=== PATIENT | female | born 1990 | race Caucasian/White ===

== ENCOUNTER 2017-01-24 07:40 | Emergency (ER) | payer BC, OTHER ==
--- NOTE | 2017-01-24 08:55 | ED ---
General Adult HPI - General Chief complaint: Recheck/Abnormal Lab/Rx Stated complaint: Vomiting, abd pain Time Seen by Provider: 01/24/17 08:41 Source: patient, RN notes reviewed Mode of arrival: ambulatory Limitations: no limitations - History of Present Illness Initial comments: Patient reports 26-year-old female who presents emergency room today with multiple point specialist within the last few days she had symptoms of nausea vomiting diarrhea. She states this has improved. She denies any abdominal pain. She states that a friend test positive for mild she has had a sore throat over the last few days as well. Patient does note some body aches. She denies any recorded temperatures but states she's had some chills. Patient states that she also thinks she may have a mastitis as she's been breast- feeding but only using one side. Patient denies any other complaints or symptoms at this time. Patient denies any recent shortness of breath, chest pain , back pain, abdominal pain, numbness or tingling, dysuria or hematuria, constipation, headaches or visual changes, or any other complaints. - Related Data Home Medications Medication Instructions Recorded Confirmed Ibuprofen [Motrin] 800 mg PO Q6HR PRN 01/24/17 01/24/17 Previous Rx's Medication Instructions Recorded Cephalexin [Keflex] 500 mg PO Q12HR 10 Days 01/24/17 Allergies Allergy/AdvReac Type Severity Reaction Status Date / Time codeine Allergy Chest Pain Verified 01/24/17 09:02 acetaminophen [From Vicodin] AdvReac other Verified 01/24/17 09:02 hydrocodone bitartrate AdvReac other Verified 01/24/17 09:02 [From Vicodin] Review of Systems ROS Statement: Those systems with pertinent positive or pertinent negative responses have been documented in the HPI. ROS Other: All systems not noted in ROS Statement are negative. Past Medical History Past Medical History: GERD/Reflux, Musculoskeletal Disorder, Neurologic Disorder Additional Past Medical History / Comment(s): Basilar Artery Headaches. Genital Herpes. Bulging disk. Hypoglycemia. ADHD History of Any Multi-Drug Resistant Organisms: None Reported Past Surgical History: Breast Surgery, Orthopedic Surgery Additional Past Surgical History / Comment(s): Right breast mass removed and no Cancer was dx; Right fifth digit surgery due injury; Left inner wrist ganglion cyst removal. Past Anesthesia/Blood Transfusion Reactions: Motion Sickness Additional Past Anesthesia/Blood Transfusion Reaction / Comment(s): No reactions from previous anesthesia; Never had blood transfusion. Past Psychological History: ADD/ADHD, Anxiety, Depression, PTSD Smoking Status: Never smoker Past Alcohol Use History: Occasional Past Drug Use History: Marijuana - Past Family History Mother Family Medical History: Seizure Disorder General Exam - General Exam Comments Initial Comments: General: The patient is awake and alert, in no distress, and does not appear acutely ill. Eye: Pupils are equal, round and reactive to light, extra-ocular movements are intact. No nystagmus. There is normal conjunctiva bilaterally. No signs of icterus. Ears, nose, mouth and throat: There are moist mucous membranes and no oral lesions. Neck: The neck is supple, there is no tenderness or JVD. Cardiovascular: There is a regular rate and rhythm. No murmur, rub or gallop is appreciated. Respiratory: Lungs are clear to auscultation, respirations are non-labored, breath sounds are equal. No wheezes, stridor, rales, or rhonchi. Gastrointestinal: Soft, non-distended, non-tender abdomen without masses or organomegaly noted. There is no rebound or guarding present. No CVA tenderness. Bowel sounds are unremarkable. Musculoskeletal: Normal ROM, no tenderness. Strength 5/5. Sensation intact. Pulses equal bilaterally 2+. Neurological: A&O x 3. CN II-XII intact, There are no obvious motor or sensory deficits. Coordination appears grossly intact. Speech is normal. Skin: Skin is warm and dry and no rashes or lesions are noted. Psychiatric: Cooperative, appropriate mood & affect, normal judgment. Breast: TREATMENT MANAGERNIYA Velasquez present for exam. There is mild redness to the right breast is tender on exam. No masses. Limitations: no limitations Course Vital Signs 01/24/17 01/24/17 01/24/17 08:09 09:00 10:00 Temperature 99.4 F Pulse Rate 113 H 109 H 95 Respiratory 20 20 20 Rate Blood Pressure 118/69 128/60 115/69 O2 Sat by Pulse 99 99 96 Oximetry Medical Decision Making - Medical Decision Making Case discussed in detail with attending physician Dr. Cohen. Patient reexamined at this time shows no signs of distress resting comfortably. Patient's labs reviewed does show 17,000 white count. Urinalysis shows large multiple 12 white cells. Culture pending. Patient will be started on antibiotics of Keflex a mastoiditis. Advised close follow-up over the next 2 days with family doctor or [facility]/advised to return here to the emergency room if any symptoms increase or worsen. - Lab Data Result diagrams: 01/24/17 08:53 01/24/17 08:53 Lab Results 01/24/17 01/24/17 01/24/17 Range/Units 08:53 08:53 08:53 WBC 17.9 H (3.8-10.6) k/uL RBC 3.29 L (3.80-5.40) m/uL Hgb 10.1 L (11.4-16.0) gm/dL Hct 29.9 L (34.0-46.0) % MCV 90.8 (80.0-100.0) fL MCH 30.7 (25.0-35.0) pg MCHC 33.8 (31.0-37.0) g/dL RDW 13.1 (11.5-15.5) % Plt Count 194 (150-450) k/uL Neutrophils % 89 % Lymphocytes % 5 % Monocytes % 4 % Eosinophils % 1 % Basophils % 0 % Neutrophils # 15.9 H (1.3-7.7) k/uL Lymphocytes # 0.9 L (1.0-4.8) k/uL Monocytes # 0.7 (0-1.0) k/uL Eosinophils # 0.2 (0-0.7) k/uL Basophils # 0.1 (0-0.2) k/uL Sodium (137-145) mmol/L Potassium (3.5-5.1) mmol/L Chloride (98-107) mmol/L Carbon Dioxide (22-30) mmol/L Anion Gap mmol/L BUN (7-17) mg/dL Creatinine (0.52-1.04) mg/dL Est GFR (MDRD) Af Amer (>60 ml/min/1.73 sqM) Est GFR (MDRD) Non-Af (>60 ml/min/1.73 sqM) Glucose (74-99) mg/dL Calcium (8.4-10.2) mg/dL Total Bilirubin (0.2-1.3) mg/dL AST (14-36) U/L ALT (9-52) U/L Alkaline Phosphatase (38-126) U/L Total Protein (6.3-8.2) g/dL Albumin (3.5-5.0) g/dL Urine Color Urine Appearance (Clear) Urine pH (5.0-8.0) Ur Specific Sparks (1.001-1.035) Urine Protein (Negative) Urine Glucose (UA) (Negative) Urine Ketones (Negative) Urine Blood (Negative) Urine Nitrite (Negative) Urine Bilirubin (Negative) Urine Urobilinogen (<2.0) mg/dL Ur Leukocyte Esterase (Negative) Urine RBC (0-5) /hpf Urine WBC (0-5) /hpf Ur Squamous Epith Cells (0-4) /hpf Urine Bacteria (None) /hpf Urine Mucus (None) /hpf Urine HCG, Qual (Not Detectd) Heterophile Antibody Negative (Negative) Group A Strep Rapid Negative (Negative) 01/24/17 01/24/17 01/24/17 Range/Units 08:53 10:15 10:15 WBC (3.8-10.6) k/uL RBC (3.80-5.40) m/uL Hgb (11.4-16.0) gm/dL Hct (34.0-46.0) % MCV (80.0-100.0) fL MCH (25.0-35.0) pg MCHC (31.0-37.0) g/dL RDW (11.5-15.5) % Plt Count (150-450) k/uL Neutrophils % % Lymphocytes % % Monocytes % % Eosinophils % % Basophils % % Neutrophils # (1.3-7.7) k/uL Lymphocytes # (1.0-4.8) k/uL Monocytes # (0-1.0) k/uL Eosinophils # (0-0.7) k/uL Basophils # (0-0.2) k/uL Sodium 138 (137-145) mmol/L Potassium 4.1 (3.5-5.1) mmol/L Chloride 103 (98-107) mmol/L Carbon Dioxide 23 (22-30) mmol/L Anion Gap 12 mmol/L BUN 7 (7-17) mg/dL Creatinine 0.69 (0.52-1.04) mg/dL Est GFR (MDRD) Af Amer >60 (>60 ml/min/1.73 sqM) Est GFR (MDRD) Non-Af >60 (>60 ml/min/1.73 sqM) Glucose 96 (74-99) mg/dL Calcium 9.3 (8.4-10.2) mg/dL Total Bilirubin 0.8 (0.2-1.3) mg/dL AST 27 (14-36) U/L ALT 39 (9-52) U/L Alkaline Phosphatase 61 (38-126) U/L Total Protein 7.5 (6.3-8.2) g/dL Albumin 4.2 (3.5-5.0) g/dL Urine Color Yellow Urine Appearance Clear (Clear) Urine pH 8.0 (5.0-8.0) Ur Specific Sparks 1.017 (1.001-1.035) Urine Protein 1+ H (Negative) Urine Glucose (UA) Negative (Negative) Urine Ketones Negative (Negative) Urine Blood Large H (Negative) Urine Nitrite Negative (Negative) Urine Bilirubin Negative (Negative) Urine Urobilinogen <2.0 (<2.0) mg/dL Ur Leukocyte Esterase Negative (Negative) Urine RBC >182 H (0-5) /hpf Urine WBC 12 H (0-5) /hpf Ur Squamous Epith Cells 1 (0-4) /hpf Urine Bacteria Rare H (None) /hpf Urine Mucus Rare H (None) /hpf Urine HCG, Qual Not Detected (Not Detectd) Heterophile Antibody (Negative) Group A Strep Rapid (Negative) Disposition Clinical Impression: Mastitis Disposition: HOME SELF-CARE Condition: Good Instructions: Mastitis (ED) Additional Instructions: Please use medication as discussed. Please follow-up with [facility]/family doctor in the next 2 days of symptoms have not improved. Please return to emergency room if the symptoms increase or worsen or for any other concerns. Prescriptions: Cephalexin [Keflex] 500 mg PO Q12HR 10 Days Referrals: None,Stated [Primary Care Provider] - 1-2 days Rafi Child DO [Doctor of Osteopathic Medicine] - 1-2 days Adelina Vega MD [REFERRING] - 1-2 days Time of Disposition: 11:20
[2017-01-24] MEDS ORDERED: SODIUM CHLORIDE 0.9% 1,000 ML IV ONE (09:02)
[2017-01-24 09:25] LABS: Basophils # (A) 0.1 k/uL (0-0.2); Basophils % (A) 0 %; CH 30.9; CHCM 34.2; Eosinophils # (A) 0.2 k/uL (0-0.7); Eosinophils % (A) 1 %; HCT 29.9 % (34.0-46.0); HDW 2.35; HGB 10.1 gm/dL (11.4-16.0); Luc # (Auto) 0.13; Luc % (Auto) 1; Lymphocytes # (A) 0.9 k/uL (1.0-4.8); Lymphocytes % (A) 5 %; MCH 30.7 pg (25.0-35.0); MCHC 33.8 g/dL (31.0-37.0); MCV 90.8 fL (80.0-100.0); Mean Platelet Volume 7.3; Monocytes # (A) 0.7 k/uL (0-1.0); Monocytes % (A) 4 %; Neutrophils # (A) 15.9 k/uL (1.3-7.7); Neutrophils % (A) 89 %; RBC 3.29 m/uL (3.80-5.40); RDW 13.1 % (11.5-15.5); WBC 17.9 k/uL (3.8-10.6); WBC (Perox) 17.47
[2017-01-24 09:31] LABS: ALT 39 U/L (9-52); AST 27 U/L (14-36); Alkaline Phosphatase 61 U/L (38-126); Anion Gap 12 mmol/L; Blood Urea Nitrogen 7 mg/dL (7-17); Calcium 9.3 mg/dL (8.4-10.2); Carbon Dioxide 23 mmol/L (22-30); Chloride 103 mmol/L (98-107); Glucose 96 mg/dL (74-99); Non-African American GFR(MDRD) >60 (>60 ml/min/1.73 sqM); Potassium 4.1 mmol/L (3.5-5.1); Sodium 138 mmol/L (137-145); Total Bilirubin 0.8 mg/dL (0.2-1.3); Total Protein 7.5 g/dL (6.3-8.2)
[2017-01-24 11:13] LABS: Appearance,Urine Clear (Clear); Bacteria,Urine Rare /hpf; Bilirubin,Urine Negative (Negative); Glucose,Urine (UA) Negative (Negative); Ketones,Urine Negative (Negative); Leukocyte Esterase,Urine Negative (Negative); Mucus,Urine Rare /hpf; Nitrite,Urine Negative (Negative); Particle Count 2633; Protein,Urine 1+ (Negative); RBC,Urine >182 /hpf (0-5); Specific Gravity,Urine 1.017 (1.001-1.035); Squamous Epithelial Cell,Urine 1 /hpf (0-4); UA Billing (MACRO vs. MICRO) MICRO; Urobilinogen,Urine <2.0 mg/dL (<2.0); WBC,Urine 12 /hpf (0-5)
[2017-01-24 11:55] VITALS: BP 116/70; PULSE 100; RESP 18; TEMP 98.7
== END 2017-01-24 12:12 | disposition home or self-care (01) ==
LOC: EC 07:40
DX: N61.0 Mastitis without abscess (principal); R11.2 Nausea with vomiting, unspecified; R19.7 Diarrhea, unspecified; Z88.5 Allergy status to narcotic agent
CPT/HCPCS: 99284 ×2; 96365 ×2; 96361 ×2; 36415; 80053; 85025; 86308; 81001; 81025; 87086; 87081; 87430; J0696

== ENCOUNTER 2017-09-17 14:52 | Emergency (ER) | payer OTHER ==
[2017-09-17 14:57] VITALS: RESP 18; TEMP 98
[2017-09-17] MEDS ORDERED: SODIUM CHLORIDE 0.9% 500 ML IV STA (15:09)
[2017-09-17] MEDS ORDERED: SODIUM CHLORIDE 0.9% 1,000 ML IV STA (15:09)
[2017-09-17] MEDS ORDERED: METOCLOPRAMIDE 5 MG/ML 2 ML VIAL IVP STA (15:09)
[2017-09-17] MEDS ORDERED: KETOROLAC 30 MG/ML 1 ML VIAL IVP STA (15:09)
[2017-09-17] MEDS ORDERED: DEXAMETHASONE SOD PHOSPHATE 10 MG/ML 1 ML VIAL IV STA (15:09)
[2017-09-17] MEDS ORDERED: MAGNESIUM SULFATE-D5W PMX 1 GM in DEXTROSE/WATER 1 100ML.BAG IVPB ONE (15:10)
--- NOTE | 2017-09-17 15:12 | ED ---
Headache HPI - General Chief Complaint: Headache Stated Complaint: Syncope Time Seen by Provider: 09/17/17 15:04 Mode of arrival: wheelchair Limitations: no limitations - History of Present Illness Initial Comments: This 26-year-old white female presents with a complaint of a headache. She states that it is more in the frontal region but also behind her left eye and into her neck. It started this morning upon waking. She has had some photophobia and phonophobia. She does have a long history of migraine headaches and this is very similar to her previous migraines. She denies any fevers or chills. She does have some nausea. She used to be on Topamax as prescribed through a headache clinic at [facility] but stopped this medicine approximately 2 years ago because she was at that time and also because it causes kidney stones. She is thinking of getting back onto this medication. She denies currently. No other complaints or modifying factors. - Related Data Home Medications Medication Instructions Recorded Confirmed Ibuprofen [Motrin] 800 mg PO Q6HR PRN 01/24/17 01/24/17 Previous Rx's Medication Instructions Recorded Cephalexin [Keflex] 500 mg PO Q12HR 10 Days cap 01/24/17 Ondansetron [Zofran ODT] 8 mg PO Q8HR PRN #12 tab 09/17/17 Allergies Allergy/AdvReac Type Severity Reaction Status Date / Time codeine Allergy Chest Pain Verified 09/17/17 14:57 hydrocodone bitartrate AdvReac other Verified 09/17/17 14:57 [From Vicodin] Review of Systems ROS Statement: Those systems with pertinent positive or pertinent negative responses have been documented in the HPI. ROS Other: All systems not noted in ROS Statement are negative. Past Medical History Past Medical History: GERD/Reflux, Musculoskeletal Disorder, Neurologic Disorder Additional Past Medical History / Comment(s): Basilar Artery, Headaches, Genital Herpes, Bulging disk, Hypoglycemia, ADHD History of Any Multi-Drug Resistant Organisms: None Reported Past Surgical History: Breast Surgery, Orthopedic Surgery Additional Past Surgical History / Comment(s): Right breast mass removed and no Cancer was dx; Right fifth digit surgery due injury; Left inner wrist ganglion cyst removal. Past Anesthesia/Blood Transfusion Reactions: Motion Sickness Additional Past Anesthesia/Blood Transfusion Reaction / Comment(s): No reactions from previous anesthesia; Never had blood transfusion. Past Psychological History: ADD/ADHD, Anxiety, Depression, PTSD Smoking Status: Never smoker Past Alcohol Use History: Occasional Past Drug Use History: Marijuana - Past Family History Mother Family Medical History: Seizure Disorder General Exam - General Exam Comments Initial Comments: GENERAL: The patient is well nourished and well hydrated. VITAL SIGNS: Heart rate, blood pressure, respiratory rate reviewed as recorded in nurse's notes. EYES: Pupils are round and reactive. Extraocular movements are intact. No conjunctival / lid redness or swelling. ENT: No external evidence of injury, swelling, or ecchymosis. Airway is patent. Throat is clear. NECK: There is mild tenderness present to the bilateral neck her musculature. No swelling or evidence of injury. No subcutaneous emphysema. Trachea is midline. No thyroid mass. No meningeal signs. HEART: Regular rate and rhythm. Good peripheral pulses. LUNGS/CHEST: Breath sounds clear and equal bilaterally. No rales, rhonchi, or wheezes. No ecchymosis, subcutaneous emphysema, or tenderness. ABDOMEN: Abdomen soft without tenderness. No palpable masses or organomegaly. No peritoneal signs. No abdominal wall swelling or ecchymosis. EXTREMITIES: No extremity tenderness. Normal muscle tone and function. No thoracolumbar tenderness. NEUROLOGIC: Sensation is grossly intact. Cranial nerve exam reveals face is symmetrical, tongue is midline, speech is clear. SKIN: No abrasions or ecchymosis is noted. No induration or masses noted. PSYCHIATRIC: Alert and oriented. Appropriate behavior and judgment. Limitations: no limitations Course Vital Signs 09/17/17 09/17/17 14:53 16:27 Temperature 98.0 F Pulse Rate 109 H 80 Respiratory 18 18 Rate Blood Pressure 129/74 116/58 O2 Sat by Pulse 99 97 Oximetry Medical Decision Making - Medical Decision Making The patient was seen and examined. An IV is established and she is hydrated. She also receives IV Toradol, Reglan, magnesium, and Decadron. She is feeling significantly improved on recheck. It is felt as though her symptoms are consistent with migraine headaches. It is felt as though she stable for discharge and leaves in no distress. Is recommended that she follow back up with her headache specialist at [facility] for further recommendations. Disposition Clinical Impression: Migraine, Nausea Disposition: HOME SELF-CARE Condition: Good Instructions: Migraine Headache (ED) Prescriptions: Ondansetron [Zofran ODT] 8 mg PO Q8HR PRN #12 tab PRN Reason: Nausea Is patient prescribed a controlled substance at d/c from ED?: No Referrals: None,Stated [Primary Care Provider] - 1-2 days Time of Disposition: 16:34
[2017-09-17 17:12] VITALS: BP 103/57; PULSE 76
== END 2017-09-17 17:05 | disposition home or self-care (01) ==
LOC: EC 14:52
DX: G43.909 Migraine, unspecified, not intractable, without status migrainosus (principal); Z88.5 Allergy status to narcotic agent
CPT/HCPCS: 99283; 96365; 96368; 96375 ×2; J2765; J1100; J1885; J3475

== ENCOUNTER 2017-11-07 15:40 | Emergency (ER) | payer OTHER ==
[2017-11-07 16:33] VITALS: BP 119/71; PULSE 91; RESP 18; TEMP 98.9
[2017-11-07] MEDS ORDERED: ORPHENADRINE 30 MG/ML 2 ML VIAL IM STA (17:24)
[2017-11-07] MEDS ORDERED: KETOROLAC 60 MG/2 ML VIAL IM STA (17:24)
--- NOTE | 2017-11-07 17:54 | XR ---
EXAMINATION TYPE: XR lumbar spine 2 or 3V DATE OF EXAM: 11/07/2017 COMPARISON: NONE HISTORY: Chronic low back pain TECHNIQUE: 3 views FINDINGS: Vertebra have normal spacing and alignment. Posterior elements are intact. Sacroiliac joint s appear normal. IMPRESSION: Negative lumbar spine exam.
--- NOTE | 2017-11-07 18:02 | ED ---
Back Pain HPI - General Chief Complaint: Back Pain/Injury Stated Complaint: Back pain Time Seen by Provider: 11/07/17 17:11 Source: patient, RN notes reviewed, old records reviewed Limitations: no limitations - History of Present Illness Initial Comments: This Patient is a 26-year-old female chief complaint of lower back pain radiating down her left leg.Patient reports that she does have chronic back pain. Worse for the past week. Patient's has no falls or injury. Patient denies any recent fever, chills, shortness of breath, chest pain, abdominal pain , nausea vomiting, numbness or tingling, dysuria or hematuria, constipation or diarrhea, headaches or visual changes, or any other current symptoms - Related Data Home Medications Medication Instructions Recorded Confirmed Ibuprofen [Motrin] 800 mg PO Q6HR PRN 01/24/17 01/24/17 Previous Rx's Medication Instructions Recorded Cephalexin [Keflex] 500 mg PO Q12HR 10 Days cap 01/24/17 Ondansetron [Zofran ODT] 8 mg PO Q8HR PRN #12 tab 09/17/17 Cyclobenzaprine [Flexeril] 10 mg PO TID #10 tab 11/07/17 Dexamethasone 0.75 mg PO DAILY #12 tab 11/07/17 Ibuprofen 600 mg PO TID #20 tablet 11/07/17 traMADol HCl [Ultram] 50 mg PO Q6HR PRN 3 Days #10 tab 11/07/17 Allergies Allergy/AdvReac Type Severity Reaction Status Date / Time codeine Allergy Chest Pain Verified 11/07/17 16:31 hydrocodone bitartrate AdvReac other Verified 11/07/17 16:31 [From Vicodin] Review of Systems ROS Statement: Those systems with pertinent positive or pertinent negative responses have been documented in the HPI. ROS Other: All systems not noted in ROS Statement are negative. Past Medical History Past Medical History: GERD/Reflux, Musculoskeletal Disorder, Neurologic Disorder Additional Past Medical History / Comment(s): Basilar Artery, Headaches, Genital Herpes, Bulging disk, Hypoglycemia, ADHD History of Any Multi-Drug Resistant Organisms: None Reported Past Surgical History: Breast Surgery, Orthopedic Surgery Additional Past Surgical History / Comment(s): Right breast mass removed and no Cancer was dx; Right fifth digit surgery due injury; Left inner wrist ganglion cyst removal. Past Anesthesia/Blood Transfusion Reactions: Motion Sickness Additional Past Anesthesia/Blood Transfusion Reaction / Comment(s): No reactions from previous anesthesia; Never had blood transfusion. Past Psychological History: ADD/ADHD, Anxiety, Depression, PTSD Smoking Status: Never smoker Past Alcohol Use History: Occasional Past Drug Use History: None Reported - Past Family History Mother Family Medical History: Seizure Disorder General Exam - General Exam Comments Initial Comments: Is a 26-year-old female. Appears in mild to moderate discomfort. Limitations: no limitations General appearance: alert, in no apparent distress Head exam: Present: atraumatic, normocephalic, normal inspection Eye exam: Present: normal appearance, PERRL, EOMI. Absent: scleral icterus, conjunctival injection, periorbital swelling ENT exam: Present: normal exam, mucous membranes moist Neck exam: Present: normal inspection. Absent: tenderness, meningismus, lymphadenopathy Respiratory exam: Present: normal lung sounds bilaterally. Absent: respiratory distress, wheezes, rales, rhonchi, stridor Cardiovascular Exam: Present: regular rate, normal rhythm, normal heart sounds. Absent: systolic murmur, diastolic murmur, rubs, gallop, clicks GI/Abdominal exam: Present: soft, normal bowel sounds. Absent: distended, tenderness, guarding, rebound, rigid Extremities exam: Present: normal inspection, full ROM, normal capillary refill. Absent: tenderness, pedal edema, joint swelling, calf tenderness Back exam: Present: normal inspection, tenderness (Patient has tenderness over the lumbar spine.) Neurological exam: Present: alert, oriented X3, CN II-XII intact Psychiatric exam: Present: normal affect Course Vital Signs 11/07/17 11/07/17 16:31 18:44 Temperature 98.9 F 98.9 F Pulse Rate 91 91 Respiratory 18 18 Rate Blood Pressure 119/71 119/71 O2 Sat by Pulse 98 98 Oximetry Medical Decision Making - Medical Decision Making 26-year-old female chief complaint of lower back pain. She does have chronic back pain worse over the past week. No falls or trauma. She reports the pain occasionally shoots down the left leg. Patient denies saddle anesthesias. Strength bilateral lower extremities. Denies any peripheral paresthesias. X- ray of the lumbar spine was reviewed and normal. Is given IM Toradol and Norflex does report some relief with this time. Patient will be discharged as reports muscle relaxers and pain management. I discussed follow-up with PCP. QUESTIONS answered return parameters were discussed. - Radiology Data Radiology results: report reviewed Lumbar spine exam. Disposition Clinical Impression: Acute lumbar back pain Disposition: HOME SELF-CARE Condition: Good Instructions: Acute Low Back Pain (ED) Additional Instructions: Patient advised to do passive stretches, apply heat and ice over the area. Patient can follow-up with primary care physician. Take the medications as prescribed. Return to the emergency department if any alarming signs or symptoms occur. Prescriptions: Cyclobenzaprine [Flexeril] 10 mg PO TID #10 tab Dexamethasone 0.75 mg PO DAILY #12 tab Ibuprofen 600 mg PO TID #20 tablet traMADol HCl [Ultram] 50 mg PO Q6HR PRN 3 Days #10 tab PRN Reason: Pain Is patient prescribed a controlled substance at d/c from ED?: Yes When asked, does pt state using other controlled substances?: No If prescribed controlled substance>3 days was MAPS reviewed?: Prescribed <3 Days If opioid is for acute pain is fill amount 7 days or less?: Yes If Rx opioid, was Start Talking consent form obtained?: Yes Referrals: Valeria Waddell MD [Primary Care Provider] - 1-2 days Time of Disposition: 17:59
== END 2017-11-07 18:44 | disposition home or self-care (01) ==
LOC: EC 15:40
DX: M54.5 Low back pain (principal); Z88.5 Allergy status to narcotic agent
CPT/HCPCS: 99284; 96372 ×2; 72100; J2360; J1885

== ENCOUNTER 2017-11-23 17:59 | Emergency (ER) | payer OTHER ==
[2017-11-23 18:11] VITALS: RESP 18
[2017-11-23] MEDS ORDERED: diphenhydrAMINE 50 MG/ML 1 ML VIAL IVP STA (18:24)
[2017-11-23] MEDS ORDERED: KETOROLAC 60 MG/2 ML VIAL IVP STA (18:24)
[2017-11-23] MEDS ORDERED: PROMETHAZINE INJ 25 MG/ML 1 ML VIAL IM STA (18:25)
--- NOTE | 2017-11-23 18:27 | ED ---
General Adult HPI - General Chief complaint: Syncope Stated complaint: Syncope Time Seen by Provider: 11/23/17 18:00 Source: patient, EMS, RN notes reviewed Mode of arrival: EMS Limitations: no limitations - History of Present Illness Initial comments: This a 26-year-old female who presents emergency Department complaining of a migraine headache for the last few days she states is typical of her normal migraine headaches it's behind her left eye like it always is. Patient states on occasion when she has a migraine she passes out. Patient states this is been ongoing for 14 years. Patient states over the last 3 or 4 months it's occurred once a month. Patient states for many years that occurred once a month. Patient states she has no nausea vomiting no photophobia. Patient denies any chest pain difficult breathing shortness of breath. Patient denies any palpations. Patient denies any abdominal pain patient denies any vomiting or diarrhea recently. Patient denies any recent fever chills or cough. Patient denies any numbness or weakness. - Related Data Home Medications Medication Instructions Recorded Confirmed No Known Home Medications 11/23/17 11/23/17 Allergies Allergy/AdvReac Type Severity Reaction Status Date / Time codeine Allergy Chest Pain Verified 11/23/17 18:25 hydrocodone bitartrate AdvReac other Verified 11/23/17 18:25 [From Vicodin] Review of Systems ROS Statement: Those systems with pertinent positive or pertinent negative responses have been documented in the HPI. ROS Other: All systems not noted in ROS Statement are negative. Past Medical History Past Medical History: GERD/Reflux, Musculoskeletal Disorder, Neurologic Disorder , Syncope Additional Past Medical History / Comment(s): Basilar Artery, Headaches, Genital Herpes, Bulging disk, Hypoglycemia, ADHD History of Any Multi-Drug Resistant Organisms: None Reported Past Surgical History: Breast Surgery, Orthopedic Surgery Additional Past Surgical History / Comment(s): Right breast mass removed and no Cancer was dx; Right fifth digit surgery due injury; Left inner wrist ganglion cyst removal. Past Anesthesia/Blood Transfusion Reactions: Motion Sickness Additional Past Anesthesia/Blood Transfusion Reaction / Comment(s): No reactions from previous anesthesia; Never had blood transfusion. Past Psychological History: ADD/ADHD, Anxiety, Depression, PTSD Smoking Status: Never smoker Past Alcohol Use History: Occasional Past Drug Use History: None Reported - Past Family History Mother Family Medical History: Seizure Disorder General Exam - General Exam Comments Initial Comments: GENERAL: Patient is well-developed and well-nourished. Patient is nontoxic and well- hydrated and is in mild distress. ENT: Neck is soft and supple. No significant lymphadenopathy is noted. Oropharynx is clear. Moist mucous membranes. Neck has full range of motion without eliciting any pain. EYES: The sclera were anicteric and conjunctiva were pink and moist. Extraocular movements were intact and pupils were equal round and reactive to light. Eyelids were unremarkable. PULMONARY: Unlabored respirations. Good breath sounds bilaterally. No audible rales rhonchi or wheezing was noted. CARDIOVASCULAR: There is a regular rate and rhythm without any murmurs gallops or rubs. ABDOMEN: Soft and nontender with normal bowel sounds. No palpable organomegaly was noted. There is no palpable pulsatile mass. SKIN: Skin is clear with no lesions or rashes and otherwise unremarkable. NEUROLOGIC: Patient is alert and oriented x3. Cranial nerves II through XII are grossly intact. Motor and sensory are also intact. Normal speech, volume and content. Symmetrical smile. MUSCULOSKELETAL: Normal extremities with adequate strength and full range of motion. No lower extremity swelling or edema. No calf tenderness. LYMPHATICS: No significant lymphadenopathy is noted PSYCHIATRIC: Normal psychiatric evaluation. Normal interpersonal interactions appears functionally intact in deals appropriately with others. No signs of depression. No signs of anxiety. Limitations: no limitations Course Vital Signs 11/23/17 18:04 Temperature 98.7 F Pulse Rate 77 Respiratory 18 Rate Blood Pressure 134/84 O2 Sat by Pulse 98 Oximetry Medical Decision Making - Medical Decision Making EKG shows normal sinus rhythm at 70 bpm GA interval 146 QRS is 74 QT interval 370 QTC is 421 per patient's EKG shows no ST segment elevation or depression or T wave abnormalities are noted I gave the patient some medication for migraine headache she was much improved. Patient will follow-up with a neurologist. - Lab Data Result diagrams: 11/23/17 18:35 11/23/17 18:35 Lab Results 11/23/17 11/23/17 Range/Units 18:35 18:35 WBC 8.4 (3.8-10.6) k/uL RBC 4.45 (3.80-5.40) m/uL Hgb 13.1 (11.4-16.0) gm/dL Hct 39.9 (34.0-46.0) % MCV 89.7 (80.0-100.0) fL MCH 29.5 (25.0-35.0) pg MCHC 32.9 (31.0-37.0) g/dL RDW 13.4 (11.5-15.5) % Plt Count 267 (150-450) k/uL Neutrophils % 68 % Lymphocytes % 22 % Monocytes % 4 % Eosinophils % 3 % Basophils % 1 % Neutrophils # 5.7 (1.3-7.7) k/uL Lymphocytes # 1.8 (1.0-4.8) k/uL Monocytes # 0.4 (0-1.0) k/uL Eosinophils # 0.3 (0-0.7) k/uL Basophils # 0.1 (0-0.2) k/uL Sodium 139 (137-145) mmol/L Potassium 4.5 (3.5-5.1) mmol/L Chloride 107 (98-107) mmol/L Carbon Dioxide 23 (22-30) mmol/L Anion Gap 9 mmol/L BUN 16 (7-17) mg/dL Creatinine 0.62 (0.52-1.04) mg/dL Est GFR (CKD-EPI)AfAm >90 (>60 ml/min/1.73 sqM) Est GFR (CKD-EPI)NonAf >90 (>60 ml/min/1.73 sqM) Glucose 76 (74-99) mg/dL Calcium 9.7 (8.4-10.2) mg/dL Total Bilirubin 0.2 (0.2-1.3) mg/dL AST 19 (14-36) U/L ALT 26 (9-52) U/L Alkaline Phosphatase 39 (38-126) U/L Total Protein 7.3 (6.3-8.2) g/dL Albumin 4.4 (3.5-5.0) g/dL Disposition Clinical Impression: Migraine headache, Syncope Disposition: HOME SELF-CARE Condition: Good Instructions: Migraine Headache (ED) Is patient prescribed a controlled substance at d/c from ED?: No Referrals: Andrew Duncan MD [STAFF PHYSICIAN] - 1-2 days Valeria Waddell MD [Primary Care Provider] - 1-2 days Time of Disposition: 19:13
[2017-11-23 18:54] LABS: Basophils # (A) 0.1 k/uL (0-0.2); Basophils % (A) 1 %; Eosinophils # (A) 0.3 k/uL (0-0.7); Eosinophils % (A) 3 %; HCT 39.9 % (34.0-46.0); HGB 13.1 gm/dL (11.4-16.0); Lymphocytes # (A) 1.8 k/uL (1.0-4.8); Lymphocytes % (A) 22 %; MCH 29.5 pg (25.0-35.0); MCHC 32.9 g/dL (31.0-37.0); MCV 89.7 fL (80.0-100.0); Mean Platelet Volume 6.8; Monocytes # (A) 0.4 k/uL (0-1.0); Monocytes % (A) 4 %; Neutrophils # (A) 5.7 k/uL (1.3-7.7); Neutrophils % (A) 68 %; Platelet Count 267 k/uL (150-450); RBC 4.45 m/uL (3.80-5.40); RDW 13.4 % (11.5-15.5); WBC 8.4 k/uL (3.8-10.6)
[2017-11-23 19:03] LABS: ALT 26 U/L (9-52); AST 19 U/L (14-36); Albumin 4.4 g/dL (3.5-5.0); Alkaline Phosphatase 39 U/L (38-126); Anion Gap 9 mmol/L; Blood Urea Nitrogen 16 mg/dL (7-17); Calcium 9.7 mg/dL (8.4-10.2); Carbon Dioxide 23 mmol/L (22-30); Chloride 107 mmol/L (98-107); Glucose 76 mg/dL (74-99); Potassium 4.5 mmol/L (3.5-5.1); Sodium 139 mmol/L (137-145); Total Bilirubin 0.2 mg/dL (0.2-1.3); Total Protein 7.3 g/dL (6.3-8.2)
[2017-11-23 19:46] VITALS: BP 146/51; PULSE 77; TEMP 97
== END 2017-11-23 19:46 | disposition home or self-care (01) ==
LOC: EC 17:59
DX: G43.909 Migraine, unspecified, not intractable, without status migrainosus (principal); Z88.5 Allergy status to narcotic agent
CPT/HCPCS: 36415; 93005; 80053; 85025; 99285; 96374; 96375; 96372; J1200; J2550; J1885

== ENCOUNTER → 2017-12-19 | Outpatient (CLI) | payer OTHER ==
--- NOTE | 2017-12-19 15:30 | MR ---
EXAMINATION TYPE: MR angio head wo con DATE OF EXAM: 12/19/2017 COMPARISON: MRI brain 12/19/2017 HISTORY: Headache CONTRAST: None TECHNIQUE: Multiplanar multiecho imaging on a 3.0 [place] magnet is performed through the [place]. 3-D [id number] imaging is performed. Source images are reviewed on the computer in the axi al plane. Reconstructed images rotating on the computer are reviewed. FINDINGS: The internal carotid arteries bifurcate normally into A1 and M1 segments. The A2 segments are normal. Middle cerebral artery branches are normal. Anterior communicating artery is patent. The right posterior communicating artery is absent. The left posterior communicating artery is patent. Vertebrobasilar arteries within the [id number] are normal. Posterior cerebral vasculature is norm al. No suspicious aneurysm or aneurysmal dilatation is evident. No obstructions are identified. No significant flow-limiting stenosis is evident. IMPRESSIONS: 1. NORMAL MRA [place] OF ROSS.
--- NOTE | 2017-12-19 21:34 | MR ---
EXAMINATION TYPE: MR brain wo con DATE OF EXAM: 12/19/2017 COMPARISON: None HISTORY: Headache CONTRAST: Performed utilizing 0 mL intravenous Gadavist gadolinium contrast. TECHNIQUE: Multiplanar, multiecho imaging on a 3.0 [place]ár[place] magnet is performed through the brain. Stud y is performed within 24 hours of arrival to the hospital. The craniovertebral junction is normal. The pituitary is normal. Diffusion-weighted imaging is performed. No abnormal hyperintensity is present to suggest an acute i ntracranial infarct or acute ischemic change. Signal through the brain is normal. Ventricles and sulci are appropriate for the patient age. Optic chiasm is visualized normal. There is normal vascular flow voids within the visualized intracra nial cerebral vasculature. IMPRESSIONS: 1. Normal noncontrast MRI brain
== END | disposition home or self-care (01) ==
LOC: RADMRIMAIN 10:36
PROVIDERS: ATTEND Family Medicine
DX: R51 Headache (principal); Z86.69 Personal history of other diseases of the nervous system and sense organs
CPT/HCPCS: 70544; 70551

== ENCOUNTER → 2018-01-16 | Outpatient (CLI) | payer OTHER ==
--- NOTE | 2018-01-16 08:41 | MR ---
EXAMINATION TYPE: MR lumbar spine wo con DATE OF EXAM: 01/16/2018 7:59 AM COMPARISON: NONE HISTORY: Low back pain Multiplanar, MultiSpin echo imaging of the lumbar spine was performed. L1-L2: Normal disc appearance without desiccation. No herniation, protrusion or disc bulging. No ca nal stenosis is present. Foramina are patent bilaterally. L2-L3: Normal disc appearance without desiccation. No herniation, protrusion or disc bulging. No ca nal stenosis is present. Foramina are patent bilaterally. L3-L4: Normal disc appearance without desiccation. No herniation, protrusion or disc bulging. No ca nal stenosis is present. Foramina are patent bilaterally. L4-L5: Normal disc appearance without desiccation. No herniation, protrusion or disc bulging. No ca nal stenosis is present. Foramina are patent bilaterally. L5-S1: Moderate disc desiccation. Right paracentral subligamentous disc herniation mildly effaces the ventral thecal sac. No evidence for lateral recess stenosis or central stenosis. Lumbar segments are intact. No paraspinal masses are identified. Conus medullaris has a normal appe arance. Subcentimeter simple cyst upper pole left kidney. IMPRESSION: 1. Moderate disc desiccation with subligamentous herniation L5-S1 is noted.
== END ==
LOC: RADMRIMAIN 07:20
PROVIDERS: ATTEND Psychiatry & Neurology Neurology
DX: M51.27 Other intervertebral disc displacement, lumbosacral region (principal)
CPT/HCPCS: 72148

== ENCOUNTER 2018-04-12 16:50 | Emergency (ER) | payer OTHER ==
[2018-04-12] MEDS ORDERED: IPRATROPIUM-ALBUTEROL 3 ML NEB INHALATION STA (17:31)
--- NOTE | 2018-04-12 17:34 | ED ---
URI HPI - General Chief Complaint: Upper Respiratory Infection Stated Complaint: cough Time Seen by Provider: 04/12/18 17:21 Source: patient, RN notes reviewed, old records reviewed Mode of arrival: ambulatory Limitations: no limitations - History of Present Illness Initial Comments: This Patient is a 27-year-old female, presents Emergency Department with chief complaint of cough 5 months. She states she's felt increasingly fatigued today. Patient states that she has been suffering from this nonproductive cough for quite some time. She does not follow up with her primary doctor. She is a nonsmoker. She states the cough seems to worse at night. She denies any associated chest pain. Patient states that she started having symptoms when her children came down with a viral illness. She states she's never seemed to get better. She reports that she's had some slight diarrhea over the past few days. She denies any abdominal pain, nausea or vomiting. - Related Data Home Medications Medication Instructions Recorded Confirmed Ascorbic Acid [Vitamin C] 500 mg PO DAILY 04/12/18 04/12/18 Estrostep Fe Control 1 tab PO DAILY 04/12/18 04/12/18 Topamax (Unknown Dose) 1 tab PO DIRECTED 04/12/18 04/12/18 Vitamin B Complex 1 cap PO DAILY 04/12/18 04/12/18 valACYclovir [Valtrex] 500 mg PO DAILY 04/12/18 04/12/18 Previous Rx's Medication Instructions Recorded Albuterol Inhaler [Ventolin Hfa 1 - 2 puff INHALATION RT-Q6H PRN 04/12/18 Inhaler] #1 inhaler methylPREDNISolone Dose Pack 4 mg PO DIRECTED #21 package 04/12/18 [Medrol Dose Pack] Allergies Allergy/AdvReac Type Severity Reaction Status Date / Time codeine Allergy Chest Pain Verified 04/12/18 17:45 hydrocodone bitartrate AdvReac other Verified 04/12/18 17:45 [From Vicodin] Review of Systems ROS Statement: Those systems with pertinent positive or pertinent negative responses have been documented in the HPI. ROS Other: All systems not noted in ROS Statement are negative. Past Medical History Past Medical History: GERD/Reflux, Musculoskeletal Disorder, Neurologic Disorder , Syncope Additional Past Medical History / Comment(s): Basilar Artery, Headaches, Genital Herpes, Bulging disk, Hypoglycemia, ADHD History of Any Multi-Drug Resistant Organisms: None Reported Past Surgical History: Breast Surgery, Orthopedic Surgery Additional Past Surgical History / Comment(s): Right breast mass removed and no Cancer was dx; Right fifth digit surgery due injury; Left inner wrist ganglion cyst removal. Past Anesthesia/Blood Transfusion Reactions: Motion Sickness Additional Past Anesthesia/Blood Transfusion Reaction / Comment(s): No reactions from previous anesthesia; Never had blood transfusion. Past Psychological History: ADD/ADHD, Anxiety, Depression, PTSD Smoking Status: Never smoker Past Alcohol Use History: Occasional Past Drug Use History: None Reported - Past Family History Mother Family Medical History: Seizure Disorder General Exam - General Exam Comments Initial Comments: 27 year old female, no distress. Limitations: no limitations General appearance: alert, in no apparent distress Head exam: Present: atraumatic, normocephalic, normal inspection Eye exam: Present: normal appearance ENT exam: Present: normal exam, mucous membranes moist Neck exam: Present: normal inspection. Absent: tenderness, meningismus, lymphadenopathy Respiratory exam: Present: normal lung sounds bilaterally. Absent: respiratory distress, wheezes, rales, rhonchi, stridor Cardiovascular Exam: Present: regular rate, normal rhythm, normal heart sounds. Absent: systolic murmur, diastolic murmur, rubs, gallop, clicks GI/Abdominal exam: Present: soft Extremities exam: Present: normal inspection, full ROM, normal capillary refill. Absent: tenderness, pedal edema, joint swelling, calf tenderness Back exam: Present: normal inspection Course Vital Signs 04/12/18 04/12/18 04/12/18 16:54 17:40 17:48 Temperature 98.3 F Pulse Rate 83 72 74 Respiratory 16 16 16 Rate Blood Pressure 107/76 O2 Sat by Pulse 100 Oximetry Medical Decision Making - Medical Decision Making 19-year-old female presents to return today with shortness of breath, and cough worse at night for the past 5 months. He states that she's felt more weak and shaky over the past few days. At this time her vital signs are stable. No fever. She appears in no acute distress. She denies any chest pain or discomfort. She was given a DuoNeb treatment. Patient's chest x-ray was reviewed and unremarkable. Her lab work shows no significant changes. HCG is negative. Discussed at this time patient's likely suffering from asthma specialist and has been worse tonight. We'll put the Patient on steroids and given albuterol treatment. Discussion is to follow-up with her primary care physician. I discussed the Patient should rest, remain hydrated. Following up with her primary care physician. - Lab Data Result diagrams: 04/12/18 17:50 04/12/18 17:50 Lab Results 04/12/18 04/12/18 04/12/18 Range/Units 17:42 17:42 17:50 WBC (3.8-10.6) k/uL RBC (3.80-5.40) m/uL Hgb (11.4-16.0) gm/dL Hct (34.0-46.0) % MCV (80.0-100.0) fL MCH (25.0-35.0) pg MCHC (31.0-37.0) g/dL RDW (11.5-15.5) % Plt Count (150-450) k/uL Neutrophils % % Lymphocytes % % Monocytes % % Eosinophils % % Basophils % % Neutrophils # (1.3-7.7) k/uL Lymphocytes # (1.0-4.8) k/uL Monocytes # (0-1.0) k/uL Eosinophils # (0-0.7) k/uL Basophils # (0-0.2) k/uL Sodium 139 (137-145) mmol/L Potassium 4.5 (3.5-5.1) mmol/L Chloride 110 H (98-107) mmol/L Carbon Dioxide 23 (22-30) mmol/L Anion Gap 6 mmol/L BUN 11 (7-17) mg/dL Creatinine 0.82 (0.52-1.04) mg/dL Est GFR (CKD-EPI)AfAm >90 (>60 ml/min/1.73 sqM) Est GFR (CKD-EPI)NonAf >90 (>60 ml/min/1.73 sqM) Glucose 91 (74-99) mg/dL Calcium 9.5 (8.4-10.2) mg/dL Urine Color Yellow Urine Appearance Cloudy H (Clear) Urine pH 7.0 (5.0-8.0) Ur Specific [place] 1.018 (1.001-1.035) Urine Protein Negative (Negative) Urine Glucose (UA) Negative (Negative) Urine Ketones Negative (Negative) Urine Blood Negative (Negative) Urine Nitrite Negative (Negative) Urine Bilirubin Negative (Negative) Urine Urobilinogen <2.0 (<2.0) mg/dL Ur Leukocyte Esterase Negative (Negative) Ur Squamous Epith Cells <1 (0-4) /hpf Urine Bacteria Rare H (None) /hpf Urine Mucus Rare H (None) /hpf Urine Yeast (Budding) Few H (None) /hpf Urine HCG, Qual Not Detected (Not Detectd) 04/12/18 Range/Units 17:50 WBC 9.7 (3.8-10.6) k/uL RBC 4.70 (3.80-5.40) m/uL Hgb 13.8 (11.4-16.0) gm/dL Hct 42.0 (34.0-46.0) % MCV 89.3 (80.0-100.0) fL MCH 29.5 (25.0-35.0) pg MCHC 33.0 (31.0-37.0) g/dL RDW 12.9 (11.5-15.5) % Plt Count 262 (150-450) k/uL Neutrophils % 63 % Lymphocytes % 28 % Monocytes % 4 % Eosinophils % 3 % Basophils % 1 % Neutrophils # 6.1 (1.3-7.7) k/uL Lymphocytes # 2.7 (1.0-4.8) k/uL Monocytes # 0.4 (0-1.0) k/uL Eosinophils # 0.3 (0-0.7) k/uL Basophils # 0.1 (0-0.2) k/uL Sodium (137-145) mmol/L Potassium (3.5-5.1) mmol/L Chloride (98-107) mmol/L Carbon Dioxide (22-30) mmol/L Anion Gap mmol/L BUN (7-17) mg/dL Creatinine (0.52-1.04) mg/dL Est GFR (CKD-EPI)AfAm (>60 ml/min/1.73 sqM) Est GFR (CKD-EPI)NonAf (>60 ml/min/1.73 sqM) Glucose (74-99) mg/dL Calcium (8.4-10.2) mg/dL Urine Color Urine Appearance (Clear) Urine pH (5.0-8.0) Ur Specific [place] (1.001-1.035) Urine Protein (Negative) Urine Glucose (UA) (Negative) Urine Ketones (Negative) Urine Blood (Negative) Urine Nitrite (Negative) Urine Bilirubin (Negative) Urine Urobilinogen (<2.0) mg/dL Ur Leukocyte Esterase (Negative) Ur Squamous Epith Cells (0-4) /hpf Urine Bacteria (None) /hpf Urine Mucus (None) /hpf Urine Yeast (Budding) (None) /hpf Urine HCG, Qual (Not Detectd) - Radiology Data Radiology results: report reviewed Normal chest x-ray Disposition Clinical Impression: Chronic cough, Fatigue Disposition: HOME SELF-CARE Condition: Good Instructions: Asthma (ED) Additional Instructions: Patient has follow up with your primary care physician. Take the steroids and use inhaler as prescribed. Return to emergency department if any alarming signs or symptoms occur. Prescriptions: Albuterol Inhaler [Ventolin Hfa Inhaler] 1 - 2 puff INHALATION RT-Q6H PRN #1 inhaler PRN Reason: Shortness Of Breath methylPREDNISolone Dose Pack [Medrol Dose Pack] 4 mg PO DIRECTED #21 package Is patient prescribed a controlled substance at d/c from ED?: No Referrals: Valeria Waddell MD [Primary Care Provider] - 1-2 days Time of Disposition: 19:06
[2018-04-12 17:57] VITALS: PULSE 74
[2018-04-12 18:03] LABS: Basophils # (A) 0.1 k/uL (0-0.2); Basophils % (A) 1 %; Eosinophils # (A) 0.3 k/uL (0-0.7); Eosinophils % (A) 3 %; HGB 13.8 gm/dL (11.4-16.0); Lymphocytes # (A) 2.7 k/uL (1.0-4.8); Lymphocytes % (A) 28 %; MCH 29.5 pg (25.0-35.0); MCV 89.3 fL (80.0-100.0); Mean Platelet Volume 7.2; Monocytes # (A) 0.4 k/uL (0-1.0); Monocytes % (A) 4 %; Neutrophils # (A) 6.1 k/uL (1.3-7.7); Neutrophils % (A) 63 %; Platelet Count 262 k/uL (150-450); RDW 12.9 % (11.5-15.5); WBC 9.7 k/uL (3.8-10.6)
[2018-04-12 18:11] LABS: Anion Gap 6 mmol/L; Blood Urea Nitrogen 11 mg/dL (7-17); Calcium 9.5 mg/dL (8.4-10.2); Carbon Dioxide 23 mmol/L (22-30); Chloride 110 mmol/L (98-107); Glucose 91 mg/dL (74-99); Potassium 4.5 mmol/L (3.5-5.1); Sodium 139 mmol/L (137-145)
[2018-04-12 18:12] LABS: Appearance,Urine Cloudy (Clear); Bacteria,Urine Rare /hpf; Bilirubin,Urine Negative (Negative); Blood,Urine Negative (Negative); Budding Yeast,Urine Few /hpf; Color,Urine Yellow; Glucose,Urine (UA) Negative (Negative); Ketones,Urine Negative (Negative); Leukocyte Esterase,Urine Negative (Negative); Mucus,Urine Rare /hpf; Nitrite,Urine Negative (Negative); Protein,Urine Negative (Negative); Specific Gravity,Urine 1.018 (1.001-1.035); Squamous Epithelial Cell,Urine <1 /hpf (0-4); Urobilinogen,Urine <2.0 mg/dL (<2.0)
--- NOTE | 2018-04-12 18:35 | XR ---
EXAMINATION TYPE: XR chest 2V DATE OF EXAM: 04/12/2018 COMPARISON: NONE HISTORY: Cough and weakness TECHNIQUE: Frontal and lateral views of the chest are obtained. FINDINGS: Heart and mediastinum are normal. Lungs are clear. Diaphragm is normal. Bony thorax appear s normal. Pulmonary vascularity is normal. IMPRESSION: Normal chest
[2018-04-12 19:50] VITALS: BP 116/68; RESP 18; TEMP 98.2
== END 2018-04-12 19:30 | disposition home or self-care (01) ==
LOC: EC 16:50
DX: R05 Cough (principal); R53.83 Other fatigue; F90.9 Attention-deficit hyperactivity disorder, unspecified type; F32.9 Major depressive disorder, single episode, unspecified; F41.9 Anxiety disorder, unspecified; F43.10 Post-traumatic stress disorder, unspecified; Z79.3 Long term (current) use of hormonal contraceptives; Z79.899 Other long term (current) drug therapy; Z88.5 Allergy status to narcotic agent
CPT/HCPCS: 36415; 71046; 80048; 81001; 81025; 85025; 94640; 99284

== ENCOUNTER → 2018-06-15 | Outpatient (CLI) | payer OTHER ==
--- NOTE | 2018-06-15 10:33 | USB ---
Reason for exam: clinical finding. History: Took hormonal contraceptives beginning at age 16. Indicated problem(s): pain in both breasts. Physical Findings: Nurse Summary: soft, nodular, prominent nodule (nurse dw). US Breast BILAT Right complete breast ultrasound includes all four quadrants, the retroareolar region and axilla. Finding demonstrates a 0.5 x 0.2 x 0.5cm lesion too small to characterize at 6 o'clock, a 0.6 x 0.3 x 0.6cm solid lesion at 10 o'clock that can be reassessed in 6 months and a 0.7 x 0.4 x 0.3cm mixed lesion at the axilla tail, possibly cystic, reassess in 6 months. Right breast shows no solid or cystic lesion. Left complete breast ultrasound includes all four quadrants, the retroareolar region and axilla. Finding demonstrates no cystic or solid lesion seen. These results were verbally communicated with the patient and result sheet given to the patient on 06/15/18. ASSESSMENT: Probably benign, BI-RAD 3 RECOMMENDATION: Ultrasound of the right breast in 6 months. Manage on a clinical basis with regard to bilateral breast pain.
== END | disposition home or self-care (01) ==
LOC: RADUSWWP 06:55
PROVIDERS: ATTEND Obstetrics & Gynecology
DX: N64.4 Mastodynia (principal)

== ENCOUNTER 2018-07-18 09:39 | Emergency (ER) | payer OTHER ==
[2018-07-18 09:44] VITALS: BP 128/87; PULSE 89; RESP 18; TEMP 98.4
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
[2018-07-18] MEDS ORDERED: ONDANSETRON 4 MG ODT STARTER PACK 2 TAB BTL PO STA (10:16)
== END 2018-07-18 10:45 | disposition home or self-care (01) ==
LOC: EC 09:39
DX: F07.81 Postconcussional syndrome (principal); Z79.3 Long term (current) use of hormonal contraceptives; Z79.899 Other long term (current) drug therapy; Z88.5 Allergy status to narcotic agent
CPT/HCPCS: 99283; S0119

== ENCOUNTER → 2018-10-20 | Outpatient (CLI) | payer OTHER ==
[2018-10-20 14:02] VITALS: BP 121/66; PULSE 98; RESP 16; TEMP 98; BMI 20.1
--- NOTE | 2018-10-20 15:43 | P.PN ---
Subjective Progress Note Date: 10/20/18 Principal diagnosis: Breast pain The patient is a 27-year-old white female who was initially seen on 07-27-28 with a complaint of breast pain. At that time she noted that the pain was not cyclical. She did take ibuprofen at times. And she had had a bilateral breast ultrasound done in May 2018 which revealed cystic changes in the right breast and repeat ultrasound of the right breast in 6 months was recommended. In the left breast there were no specific lesions of concern. She did take control pills. And she did drink 2 pots per day. She did not smoke and is not exposed to secondhand smoke. After she was seen it was felt that she had fibrocystic breast changes and that she should stop the caffeine and was given a recommendation to take primrose oil. She states within a week of taking the [place] oil the pain had markedly decreased. Additionally at that time she was under stress and stress has resolved. She has lost 35 pounds which may also be a reason for the decrease in breast pain. Family history: Both grandfathers prostate cancer Hormonal history: Menarche: 12 Pregnancies: 2, Versed 24, press-fit: Yes, at 14 Periods: Regular if she was on control pills control pills: Yes Hormones: Negative Past surgical history: Right breast biopsy Cyst removed from this On section Finger fracture Past medical history: Patient is alert artery migraines which have decreased Social history: Smoke: Negative Alcohol: Once a month Drugs: Negative Review of systems: Constitutional: Negative Eyes: Negative Ears: Negative Breasts: As HPI Cardiovascular: Negative Respiratory: Asthma GI: Negative : Negative Menstrual periods are regular on control pills : Kidney stones Musculoskeletal: Negative Integument: Negative Neurologic: Weakness Psychiatric: Negative Endocrine: Weight loss Objective - Vital Signs Vital signs: Vital Signs Temp 98.0 F 10/20/18 13:59 Pulse 98 10/20/18 13:59 Resp 16 10/20/18 13:59 BP 121/66 10/20/18 13:59 Pulse Ox 97 10/20/18 13:59 Intake & Output 10/19/18 10/20/18 10/20/18 18:59 06:59 18:59 Weight 49.895 kg - Exam BMI 20.1 - Constitutional General appearance: Present: average body habitus - EENT Eyes: Present: EOMI ENT: Present: hearing grossly normal - Neck Neck: Present: normal ROM - Respiratory Respiratory: bilateral: CTA - Cardiovascular Rhythm: regular Heart sounds: normal: S1, S2 - Gastrointestinal Gastrointestinal Comment(s): No guarding or rebound General gastrointestinal: Present: soft - Integumentary Integumentary: Present: normal turgor - Musculoskeletal Musculoskeletal: Present: gait normal - Psychiatric Psychiatric: Present: A&O x's 3, appropriate affect, intact judgment & insight - Additional findings Additional findings: Breast examination: Right breast: Multi-positional exam no dominant masses or nodules of concern, fibrocystic changes Right axilla: No adenopathy of concern Left breast: Multi-positional exam no dominant masses or nodules of concern Left axilla: No adenopathy of concern Assessment and Plan Assessment: Impression: 1. Fibrocystic breast disease 2. Decreased breast pain 3. Family history of cancer 4. Personal history of migraines Plan: 1. Continue present was available 2. Avoid caffeine 3. Follow-up breast ultrasound in December with physician exam at that time 4. Motrin as needed for pain Cc: Dr. Riddle
== END ==
LOC: WWCWWP 13:49
PROVIDERS: ATTEND Surgery
DX: Z53.9 Procedure and treatment not carried out, unspecified reason (principal)

== ENCOUNTER → 2019-01-04 | Outpatient (CLI) | payer OTHER ==
--- NOTE | 2019-01-05 08:15 | USB ---
Reason for exam: follow-up at short interval from prior study. History: Benign excisional biopsy of the right breast, 2004. Took hormonal contraceptives beginning at age 16. Physical Findings: Nurse Summary: Patient complains of breast pain, improved with primrose oil use, started 6 months ago (nurse mj). US Breast RT Right complete breast ultrasound includes all four quadrants, the retroareolar region and axilla. Finding demonstrates a 0.5 x 0.2 x 0.5cm oval, mixed, stable lesion at 10 o'clock, a 0.5 x 0.2 x 0.5cm lesion too small to characterize at the axilla tail and a 0.4 x 0.2 x 0.3cm lesion too small to characterize at the axilla tail. These results were verbally communicated with the patient and result sheet given to the patient on 01/04/19. ASSESSMENT: Benign, BI-RAD 2 RECOMMENDATION: Clinical management of the right breast. Manage patient on a clinical basis.
== END | disposition home or self-care (01) ==
LOC: RADUSWWP 14:37
PROVIDERS: ATTEND Surgery
DX: R92.8 Other abnormal and inconclusive findings on diagnostic imaging of breast (principal)

== ENCOUNTER → 2019-01-11 | Outpatient (CLI) | payer OTHER ==
[2019-01-11 12:55] VITALS: BP 118/79; PULSE 91; RESP 16; TEMP 98; BMI 19.5
--- NOTE | 2019-01-11 13:23 | P.PN ---
Subjective Progress Note Date: 01/11/19 Principal diagnosis: breast pain/abnormal ultrasound Left breast Lucila is a 28-year-old white female who initially presented in July 2018 with a complaint of left axillary pain radiating into her breast. Additionally she stated that the right side was beginning to hurt as well. At this time she states she only has discomfort if she sleeps on her side. If she is on this area the lateral aspect of the breast is uncomfortable. She did just have a repeat right breast ultrasound. This revealed stable lesions and felt to be benign BIRADS 2. The patient did start using Berry area which has helped with the breast discomfort. She states within a week of taking the Berry oil the breast discomfort had decreased. Her breasts are also last fall. This happen before any change in her control pills. The patient does not drink caffeinated beverages on a daily basis. The patient does not smoke. The patient is not exposed to secondhand smoke on a regular basis. And the patient does not eat large quantities of chocolate. The patient is taking Topamax for migraine headaches. When she increased her Topamax to decrease the effectiveness of the control pills but she did have persistent spotting. She therefore stopped the control pills. The patient did start in her breast prior to starting the control pills. Family history: both grandfathers: prostate cancer Hormonal History: menarche: 12 : 2, first at 24, breast fed: yes, at 14 periods: Regular only if she is on control control pills: Yes for 3 months, stopped the BCP, was told her son carries the gene for endometriosis Hormones: Negative Past surgical history: right breast biopsy cyst removed from wrist arm fracture finger fracture Past medical history: basilar artery migraines irregular periods Social History: smoke: none alcohol: 1 time a month drugs: none - Constitutional Constitutional: Denies chills, Denies fever - EENT Eyes: denies blurred vision, denies pain Ears: deny: decreased hearing, tinnitus Ears, nose, mouth and throat: Reports headache - Breasts Breasts: bilateral: as per HPI - Cardiovascular Cardiovascular: Denies chest pain, Denies shortness of breath - Respiratory Comment: asthma Respiratory: Denies cough, Denies 7 - Gastrointestinal Gastrointestinal: Denies abdominal pain, Denies diarrhea, Denies nausea, Denies vomiting - Genitourinary (Female) Genitourinary: Reports kidney stones, Denies dysuria, Denies hematuria - Menstruation Comment: on BCP Menstruation: Reports period normal - Genitourinary (Male) Genitourinary: Reports kidney stones - Musculoskeletal Musculoskeletal: Denies myalgias - Integumentary Integumentary: Denies pruritus, Denies rash - Neurological Neurological: Reports numbness, Reports weakness - Psychiatric Psychiatric: Reports anxiety, Reports depression - Endocrine Endocrine: Reports fatigue, Reports weight change - Hematologic/Lymphatic Comment: none - Allergic/Immunologic Allergic/Immunologic: Reports as per HPI Past Medical History Past Medical History: GERD/Reflux, Musculoskeletal Disorder, Neurologic Disorder, Syncope Additional Past Medical History / Comment(s): Basilar Artery, Headaches, Genital Herpes, Bulging disk, Hypoglycemia, ADHD History of Any Multi-Drug Resistant Organisms: None Reported Past Surgical History: Breast Surgery, Orthopedic Surgery Additional Past Surgical History / Comment(s): Right breast mass removed and no Cancer was dx; Right fifth digit surgery due injury; Left inner wrist ganglion cyst removal. Past Anesthesia/Blood Transfusion Reactions: Motion Sickness Additional Past Anesthesia/Blood Transfusion Reaction / Comment(s): No reactions from previous anesthesia; Never had blood transfusion. Past Psychological History: ADD/ADHD, Anxiety, Depression, PTSD Smoking Status: Never smoker Past Alcohol Use History: Occasional Additional Past Alcohol Use History / Comment(s): Pt. drinks one or two beers twice a week. Past Drug Use History: None Reported Additional Drug Use History / Comment(s): MJ in past. - Past Family History Mother Family Medical History: Seizure Disorder Objective - Vital Signs Vital signs: Vital Signs Temp 98.0 F 01/11/19 12:53 Pulse 91 01/11/19 12:53 Resp 16 01/11/19 12:53 BP 118/79 01/11/19 12:53 Pulse Ox 99 01/11/19 12:53 Intake & Output 01/10/19 01/11/19 01/11/19 18:59 06:59 18:59 Weight 48.534 kg - Constitutional General appearance: Present: average body habitus - EENT Eyes: Present: EOMI ENT: Present: hearing grossly normal - Neck Neck: Present: normal ROM - Respiratory Respiratory: bilateral: CTA - Cardiovascular Rhythm: regular Heart sounds: normal: S1, S2 - Gastrointestinal General gastrointestinal: Present: soft - Integumentary Integumentary: Present: normal turgor - Musculoskeletal Musculoskeletal: Present: gait normal - Psychiatric Psychiatric: Present: A&O x's 3, appropriate affect, intact judgment & insight - Additional findings Additional findings: breast exam: right breast: Multi-positional exam breast less intense no dominant masses or not his of concern, fibrocystic changes Weight axilla: No adenopathy of concern Left breast: Multiple positional exam no dominant masses or nodules of concern, fibrocystic changes, Breslow stents Left axilla: No adenopathy of concern Assessment and Plan Assessment: Impression: 1. Fibrocystic breast changes 2. Decreased mastodynia 3. Family history of cancer in both grandfathers 4. Migraines/basilar artery 5. Patient on Topamax and she stopped control pills recently 6. Prempro 0 appeared to be helping with the breast discomfort 7. Patient's breasts are ptotic and the patient does have some concerns related to that Plan: 1. Continue present therapy 2. Medical management of medical conditions 3. Follow-up 1 year for breast evaluation 4. Bilateral breast ultrasound in 1 year 5. Patient notices anything of concern she'll come and see me immediately Cc: Dr. Waddell
== END ==
LOC: WWCWWP 12:44
PROVIDERS: ATTEND Surgery
DX: Z53.9 Procedure and treatment not carried out, unspecified reason (principal)

== ENCOUNTER → 2020-01-07 | Outpatient (CLI) | payer OTHER ==
--- NOTE | 2020-01-08 13:13 | USB ---
Reason for exam: clinical finding. History: Benign excisional biopsy of the right breast, 2004. Took hormonal contraceptives beginning at age 16. Indicated problem(s): pain in both breasts. Physical Findings: Nurse Summary: small, movable lump left breast 1-2 o'clock, patient states pain bilateral upper half of breasts and axilla on/off x 3 years, patient states pain has been improving (nurse TM). US Breast BILAT Technologist: Archana Edward Left complete breast ultrasound includes all four quadrants, the retroareolar region and axilla. Finding demonstrates a 0.9 x 0.9 x 0.3cm oval, hypoechoic lesion at 12 o'clock, increased through transmission, possible lobular or debris filled cyst. Right complete breast ultrasound includes all four quadrants, the retroareolar region and axilla. Finding demonstrates no cystic or solid lesion seen. These results were verbally communicated with the patient and result sheet given to the patient on 01/07/20. ASSESSMENT: Probably benign, BI-RAD 3 RECOMMENDATION: Ultrasound of the left breast in 6 months.
== END | disposition home or self-care (01) ==
LOC: RADUSWWP 09:52
PROVIDERS: ATTEND Surgery
DX: N64.4 Mastodynia (principal)

== ENCOUNTER → 2020-01-17 | Outpatient (CLI) | payer OTHER ==
[2020-01-17 13:24] VITALS: BP 130/73; PULSE 114; RESP 18; TEMP 98.5
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
== END | disposition home or self-care (01) ==
LOC: WWCWWP 12:54
PROVIDERS: ATTEND Surgery
DX: Z53.9 Procedure and treatment not carried out, unspecified reason (principal)

== ENCOUNTER → 2020-07-09 | Outpatient (CLI) | payer OTHER ==
[2020-07-09 12:31] VITALS: BP 121/75; PULSE 89; RESP 16; TEMP 98.5
--- NOTE | 2020-07-09 12:40 | P.PAINCN ---
History of Present Illness - Reason for Consult Consult date: 07/09/20 - History of Present Illness This is a 29 years old female with a chronic history of severe headache started more than 17 years ago, intensity of the headache increases over the last few years, and the frequency of the headache increases significantly, and she is having episodes of headache 3-4 times a week, and the headache associated with blurred vision, she denies any motor or sensory deficit she denies any numbness or tingling sensation in the upper extremity, and she reported that the headaches start from the base of the skull and radiated to the top of the head, she tried multiple medications for headache without any significant relief, she was evaluated by a neurologist Dr. Harley and she recommended bilateral occipital nerve block Past Medical History Past Medical History: Asthma, GERD/Reflux, Musculoskeletal Disorder, Neurologic Disorder, Syncope Additional Past Medical History / Comment(s): Basilar Artery Migraines; genital herpes; bulging disc; hypoglycemia, fibromyalgia, IBS, no current asthma meds., low iron, menstrual periods irregular and heavy. History of Any Multi-Drug Resistant Organisms: None Reported Past Surgical History: Breast Surgery, Orthopedic Surgery Additional Past Surgical History / Comment(s): Right breast mass removed ; Right fifth digit surgery due injury; Left inner wrist ganglion cyst removal; left arm surgery Past Anesthesia/Blood Transfusion Reactions: Motion Sickness, Postoperative Nausea & Vomiting (PONV) Additional Past Anesthesia/Blood Transfusion Reaction / Comm: . Past Psychological History: ADD/ADHD, Anxiety, Depression, PTSD Smoking Status: Never smoker Past Alcohol Use History: Occasional Additional Past Alcohol Use History / Comment(s): denies hx of cigarettes. Past Drug Use History: Marijuana Additional Drug Use History / Comment(s): smokes marijuana daily - Past Family History Mother Family Medical History: Seizure Disorder Medications and Allergies Home Medications Medication Instructions Recorded Confirmed Type Topiramate [Topamax] 50 mg PO HS 07/27/18 07/07/20 History Dextroamphetamine/Amphetamine 20 mg PO QAM 10/20/18 07/07/20 History [Adderall Xr] Cholecalciferol (Vitamin D3) 125 mcg PO DAILY 07/07/20 07/07/20 History [Vitamin D3 (5000 Iu)] Minocycline HCl [Minocin] 100 mg PO DAILY 07/07/20 07/07/20 History Naproxen Sodium [Aleve] 220 mg PO DIRECTED PRN 07/07/20 07/07/20 History Prilosec (New Rx) 1 dose PO DIRECTED PRN 07/07/20 History Turmeric (Unknown Dose) 1 tab PO DAILY 07/07/20 History valACYclovir [Valtrex] 500 mg PO DAILY PRN 07/07/20 07/07/20 History Allergies Allergy/AdvReac Type Severity Reaction Status Date / Time codeine Allergy Chest Verified 07/07/20 14:40 Pain, anxiety hydrocodone bitartrate AdvReac anxiety, Verified 07/07/20 14:40 [From Vicodin] chest pain Physical Exam Vitals: Vital Signs Temp Pulse Resp BP Pulse Ox 07/09/20 12:24 98.5 F 89 16 121/75 98 Physical Examinations : -Constitutiona : Cooperative , not in acute distress . -HEENT : nech : supple , no Lymphadenopathy , normal thyroid size . : eyes : no ptosis , no icterus, no photophobia . - neurologic : Cranial nerve II to XII intact , no focal neurological deffecit . -psychatric : alert , oriented X 3 , appropriate affect , intact judgment and insight . -Lymphatic : no Lymphadenopathy . - musculoskeltal : Cervical Spine motor stregnth in the deltoid and biceps, normal right side , normal Left side motor stregnth biceps and the wrist extensors normal right side ,normal left side . motor stregnth in the triceps muscle . normal Right side , normal Left side deep tendon reflexes normal at the biceps , normal at Brachioradialis , normal at triceps. cervical facet loading test: Positive Bilaterally Tenderness over the occipital nerves bilaterally Lumber spine moter stegnth lower extremities ,thigh and legs 5/5 Right side , 5/5 Left side Results Comments: MRI of the brain within normal limits Discussion of the cervical spine= no fracture Assessment and Plan Plan: Assessment and plan=1-occipital neuralgia bilaterally 2-cervicogenic headache. Patient could benefit from bilateral occipital nerve block Time with Patient: Greater than 30 PQRS Measure Charge Sheet Measure #130: Documentation of Current Meds in Medical Chart: Patient's medications documented in chart Measure #226: Tobacco Use: Screen & Cessation Intervention: Pt screened for tobacco use AND intervention given Measure #111: Pneumonia Vaccination: Pneumococcal vaccine NOT administered or previously given Measure #47: Advance Care Plan: Advance care planning discussed & documented, pt chose/unable to give Measure #412: Opioid Treatment Agreement: No documentation of signed opioid treatment agreement Measure #408: Opioid Therapy Follow-up Evaluation: Patient had NO f/u eval minimum every 3 months during opioid therapy Measure #317: Preventitive Care & Scrn High Bld Press & F/U: Normal blood pressure, f/u not required Measure #128: Body Mass Index (BMI) Screening & Follow-up: BMI documented within normal parameters Measure #131: Pain Assessment & Follow-up: Pain positive & plan documented, Follow-up scheduled Measure #431: Unhealthy Alcohol Use Preventative Care & Scrn: Patient not identified as an unhealthy alcohol user PQRS Narrative: Smoking Status Never smoker Blood Pressure 121/75 Pain Intensity [Head] 10 Scale Used Numeric (1 - 10) Hx Alcohol Use (MH) No Home Medications: Ambulatory Orders Topiramate [Topamax] 50 mg PO HS 07/27/18 Dextroamphetamine/Amphetamine [Adderall Xr] 20 mg PO QAM 10/20/18 Cholecalciferol (Vitamin D3) [Vitamin D3 (5000 Iu)] 125 mcg PO DAILY 07/07/20 Minocycline HCl [Minocin] 100 mg PO DAILY 07/07/20 Naproxen Sodium [Aleve] 220 mg PO DIRECTED PRN 07/07/20 Prilosec (New Rx) 1 dose PO DIRECTED PRN 07/07/20 Turmeric (Unknown Dose) 1 tab PO DAILY 07/07/20 valACYclovir [Valtrex] 500 mg PO DAILY PRN 07/07/20
== END ==
LOC: PNWHC3 12:07
PROVIDERS: ATTEND Specialist
DX: M54.81 Occipital neuralgia (principal); G44.89 Other headache syndrome; J45.909 Unspecified asthma, uncomplicated; K21.9 Gastro-esophageal reflux disease without esophagitis
CPT/HCPCS: 99211

== ENCOUNTER 2020-07-31 09:46 | Day surgery (SDC) | payer OTHER ==
[2020-07-30 11:58] VITALS: BMI 19.2
[~2020-07-31 09:46] MED LIST: DEXAMETHASONE SOD PHOSPHATE 10 MG/ML 1 ML VIAL ONE; IOPAMIDOL M200 10 ML VIAL ONE; LACTATED RINGERS 1,000 ML IV SCH; MIDAZOLAM 2 MG/2 ML VIAL ONE; fentaNYL (PF) 50 MCG/ML 2 ML AMP ONE
[2020-07-31] MEDS ORDERED: fentaNYL (PF) 50 MCG/ML 2 ML AMP ONE (10:41)
[2020-07-31] MEDS ORDERED: methylPREDNISolone ACETATE 40 MG/ML 1 ML VIAL ONE (10:41)
[2020-07-31] MEDS ORDERED: ROPIVACAINE 5MG/ML 20ML VIAL ONE (10:41)
[2020-07-31] MEDS ORDERED: MIDAZOLAM 2 MG/2 ML VIAL ONE (10:41)
--- NOTE | 2020-07-31 10:52 | P.PCN ---
Date of Procedure: 07/31/20 Procedure(s) Performed: Preoperative diagnoses= 1- Greater occipital neuralgia ( Bilateral ) 2-cervicogenic headache Postoperative diagnoses= same as preoperative diagnosis. Procedure= Bilateral Greater occipital nerve block Anesthesia= moderate sedation with Versed 2 mg and fentanyl 100 micrograms . Estimated blood loss=minimal. Procedure indication= the patient had a history of severe chronic neck pain ,and headache, diagnosed with occipital neuralgia exam was positive for severe tenderness over the occipital nerve bilaterally, she will be a good candidate occipital nerve block, patient failed conservative management Procedure description= the patient was seen and identified in the preoperative holding area, risks and benefits and alternative of the procedure and possible complications discussed with the patient, and he agreed with the preceding, erika garcia signed the consent, an IV was started, and vital signs were monitored and were stable throughout the procedure, patient was placed in the sitting position or table and the neck area was prepped and draped with a sterile fashion, vital signs were closely monitored during the procedure, 25-gauge needle advanced 1 inch lateral to the occipital protuberance on the right side, at the location of the right occipital nerve , then after negative aspiration for heme and CSF and there was no paresthesia during the injection, 6 ml of Robivacaine 0.5% and 20 mg of Depo-Medrol injected after negative aspiration, the needle removed, and the entire same procedure was repeated for the left Greater occipital nerve. Patient tolerated the procedure well without any complication, The patient returned to supine position after the back was cleaned and a Band- Aid applied, the patient transported to recovery room in stable condition and he was monitored for 30 minutes before he was discharged home and then patient was reexamined before going home and patient was discharged in stable condition and patient will follow up with the pain clinic in a few weeks.
[2020-07-31] MEDS ORDERED: IV FLUID CONTINUATION 1,000 ML IV ONE ×2 (10:55)
[2020-07-31 11:24] VITALS: BP 128/79; PULSE 79; RESP 18
== END 2020-07-31 11:33 | disposition home or self-care (01) ==
LOC: ORPAIN 09:46
PROVIDERS: ATTEND Specialist
DX: G89.29 Other chronic pain (principal); M54.81 Occipital neuralgia; Z88.5 Allergy status to narcotic agent
CPT/HCPCS: 81025; 64405; J2250; J1030; J1100; J3010; Q9966; J2795

== ENCOUNTER 2020-08-19 10:58 | Day surgery (SDC) | payer OTHER ==
[2020-08-14 16:13] VITALS: BMI 19.0
[~2020-08-19 10:58] MED LIST changes: -DEXAMETHASONE SOD PHOSPHATE 10 MG/ML 1 ML VIAL ONE; -IOPAMIDOL M200 10 ML VIAL ONE; -MIDAZOLAM 2 MG/2 ML VIAL ONE; -fentaNYL (PF) 50 MCG/ML 2 ML AMP ONE
[2020-08-19 11:17] VITALS: RESP 16; TEMP 97.7
[2020-08-19] MEDS ORDERED: LIDOCAINE 1% (10MG/ML) FOR IV START INTRADERMA ONE (11:25)
[2020-08-19] MEDS ORDERED: methylPREDNISolone ACETATE 40 MG/ML 1 ML VIAL ONE (11:53)
[2020-08-19] MEDS ORDERED: ROPIVACAINE 5MG/ML 20ML VIAL ONE (11:53)
[2020-08-19] MEDS ORDERED: fentaNYL (PF) 50 MCG/ML 2 ML AMP ONE (11:53)
[2020-08-19] MEDS ORDERED: MIDAZOLAM 2 MG/2 ML VIAL ONE (11:53)
[2020-08-19] MEDS ORDERED: IV FLUID CONTINUATION 1,000 ML IV ONE (12:07)
--- NOTE | 2020-08-19 12:07 | P.PCN ---
Date of Procedure: 08/19/20 Description of Procedure: Pre-operative diagnosis: Greater occipital neuralgia Post Operative Diagnosis: Greater occipital neuralgia Procedure: Bilateral greater occipital nerve block Anesthesia: local with 1% lidocaine and IV sedation per nurse anesthesia PROCEDURE INDICATION: The patient with neck pain and headache secondary to occipital neuralgea unresponsive to conservative treatments. PROCEDURE DESCRIPTION / TECHNIQUE: The patient was seen and identified in the preoperative area. Risks, benefits, complications, and alternatives were discussed with the patient, the patient agreed to proceed with the procedure and signed the consent. Vital signs remained stable throughout the procedure. Patient was taken to the OR and time out was completed. The patient was placed in the sitting position on the procedure table. The cervical area and occiptial area were prepped with alcohol swab. Critical pause was taken. Vital signs were closely monitored during the procedure. Conscious sedation was used during the procedure to decrease patients anxiety. Right side: the occipital artery was palpated exiting the skull about 2-3 cm lateral and 2cm inferior to the occipital protuberance On the right side. Then after negative aspiration, a 25g needed was introduced under ultrasound, negative aspiration confirmed and then 3 ml of the block solution containing 2. 5 ml of PF Ropivaciane 0.5% and 20 mg of Depo-Medrol after negative aspiration.. Needle was withdrawn intact. Left side: occipital artery was palpated exiting the skull about 2-3 cm lateral and 2cm inferior to the occipital protuberance On the left side. Then after negative aspiration, a 25g needed was introduced under ultrasound, negative aspiration confirmed and then 3 ml of the block solution containing 2.5 ml of PF Ropivaciane 0.5% and 20 mg of Depo-Medrol after negative aspiration. Needle was withdrawn intact. Patient tolerated procedure well. No acute complications. She'll follow-up in the clinic, lesser to keep track of her pain relief. If she does not have good relief we can discuss potentially being cervical medial branch blocks
[2020-08-19 12:19] VITALS: BP 106/70; PULSE 69
== END 2020-08-19 12:37 | disposition home or self-care (01) ==
LOC: ORPAIN 10:58
PROVIDERS: ATTEND Hospitalist
DX: M54.81 Occipital neuralgia (principal)
CPT/HCPCS: 81025; 64405; J2250; J1030; J3010; J2795

== ENCOUNTER → 2021-09-30 | Outpatient (CLI) | payer OTHER ==
--- NOTE | 2021-09-30 08:27 | US ---
EXAMINATION TYPE: US abdomen complete DATE OF EXAM: 09/30/2021 COMPARISON: NONE CLINICAL HISTORY: R10.13 Epigastric pain, R12 Chronic Heartburn. Epigastric pain. Hx kidney stones. EXAM MEASUREMENTS: Liver Length: 11.0 cm Gallbladder Wall: Unable to visualize. CBD: 0.29 cm Spleen: 9.1 cm Right Kidney: 10.7 x 5.0 x 3.2 cm Left Kidney: 10.2 x 4.9 x 5.2 cm Exam is limited due to gas. Pancreas: Limited due to gas. Liver: No abnormalities seen at this time. Gallbladder: Not visualized, possibly obscured by gas. Patient states she has not had her gallbladde r removed. Evidence for sonographic Kaba's sign: No CBD: Portions seen appear wnl. Spleen: Appears to be wnl Right Kidney: Appearance of dilated lower collecting system-anechoic connective appearance. Left Kidney: Appearance of dilated upper collecting system-anechoic connective appearance. Hyperechoi c focus seen lower pole: 0.6 x 0.5 x 0.3 cm. Upper IVC: Appears wnl Abd Aorta: Appears wnl IMPRESSION: 1. Prominence of the renal collecting systems uncertain etiology. CT could BE obtained. 2. Poor visualization of the gallbladder. 3. Calculus lower pole left kidney.
== END | disposition home or self-care (01) ==
LOC: RADUSWWP 06:41
PROVIDERS: ATTEND Family Medicine
DX: N20.0 Calculus of kidney (principal)
CPT/HCPCS: 76700

== ENCOUNTER → 2021-10-15 | Outpatient (CLI) | payer OTHER ==
--- NOTE | 2021-10-15 13:34 | CT ---
EXAMINATION TYPE: CT abdomen pelvis w con DATE OF EXAM: 10/15/2021 COMPARISON: Ultrasound dated 09/30/2021 HISTORY: Abnormal abd ultrasound. Said she was told kidneys were retaining fluid, abnormally large. C /o Lt back pain CT DLP: 368.5 mGycm Automated exposure control for dose reduction was used. TECHNIQUE: Helical acquisition of images was performed from the lung bases through the pelvis. CONTRAST: Performed with Oral Contrast and with IV Contrast, patient injected with 100 mL of Isovue 300. FINDINGS: LUNG BASES: No significant abnormality is appreciated. LIVER/GB: Nonvisualized gallbladder. No definite hepatic focal lesion. PANCREAS: No significant abnormality is seen. SPLEEN: No significant abnormality is seen. ADRENALS: No significant abnormality is seen. KIDNEYS: Scattered bilateral renal hypodensities likely representing renal cysts without suspicious f eature. 2 nonobstructing calculi are seen at the lower pole left kidney each measuring 5 mm. Unremark able kidneys otherwise. FREE AIR: No free air is visualized. RETROPERITONEAL ADENOPATHY: None visualized REPRODUCTIVE ORGANS: No gross uterine or adnexal mass. URINARY BLADDER: No significant abnormality is seen. PELVIC ADENOPATHY: None visualized. OSSEOUS STRUCTURES: Degenerative changes at L5-S1 level with sizable L5-S1 disc extrusion. Further e lective MRI assessment can be considered. BOWEL: No significant abnormality is seen. OTHER: Unremarkable abdominal aorta. No sizable bursitis. IMPRESSION: Nonvisualized gallbladder, please correlate clinically. Left lower pole nonobstructing renal calculi measuring up to 5 mm. Other incidental findings as descr ibed above.
== END | disposition home or self-care (01) ==
LOC: RADCTMAIN 09:29
PROVIDERS: ATTEND Family Medicine
DX: N20.0 Calculus of kidney (principal)
CPT/HCPCS: 74177; Q9967

== ENCOUNTER 2021-12-07 12:03 | Emergency (ER) | payer OTHER ==
[2021-12-07 12:09] VITALS: BP 131/77; PULSE 92; RESP 20; TEMP 98
[2021-12-07] MEDS ORDERED: KETOROLAC 15 MG/ML 1 ML VIAL IVP STA (12:51)
[2021-12-07] MEDS ORDERED: HYDROmorphone 0.5 MG/0.5 ML SYRINGE IVP STA (12:51)
[2021-12-07] MEDS ORDERED: SODIUM CHLORIDE 0.9% 1,000 ML IV STA (12:51)
[2021-12-07] MEDS ORDERED: ONDANSETRON ODT 4 MG TAB PO STA (12:51)
[2021-12-07 13:11] LABS: Basophils # (A) 0.1 k/uL (0-0.2); Basophils % (A) 1 %; Eosinophils # (A) 0.1 k/uL (0-0.7); Eosinophils % (A) 1 %; HCT 41.7 % (34.0-46.0); HGB 13.4 gm/dL (11.4-16.0); Lymphocytes # (A) 1.9 k/uL (1.0-4.8); Lymphocytes % (A) 26 %; MCH 29.9 pg (25.0-35.0); MCHC 32.2 g/dL (31.0-37.0); MCV 92.9 fL (80.0-100.0); Mean Platelet Volume 7.8; Monocytes # (A) 0.3 k/uL (0-1.0); Monocytes % (A) 4 %; Neutrophils # (A) 4.8 k/uL (1.3-7.7); Neutrophils % (A) 66 %; Platelet Count 253 k/uL (150-450); RBC 4.48 m/uL (3.80-5.40); RDW 13.1 % (11.5-15.5); WBC 7.3 k/uL (3.8-10.6)
--- NOTE | 2021-12-07 13:14 | ED ---
General Adult HPI - General Chief complaint: Back Pain/Injury Stated complaint: Back Pain Time Seen by Provider: 12/07/21 12:41 Source: patient, RN notes reviewed, old records reviewed Mode of arrival: ambulatory Limitations: no limitations - History of Present Illness Initial comments: Patient is a 31-year-old female with past medical history remarkable for fibromyalgia, slipped disc, history of a left-sided kidney stone, who presents emergency Department complaining of left-sided back pain. Started approximately 1 week ago. Has a known 5 mm kidney stone on the left that she does not believe she has passed yet. Denies being . Denies urinary complaints including dysuria or hematuria. Discussed the pain as a achy, sharp sensation that radiates around her left flank and also down her left leg. She states she thought it was originally just her fibromyalgia, however with a history of a kidney stone and uncertainty surrounding if this is currently causing her pain and she presents emergency department for evaluation. Endorses some mild nausea with it. Denies any episodes of emesis. Denies any urinary complaints. Denies saddle anesthesia. Denies lower extremity weakness. Has no urinary or bowel incontinence or retention. Denies being . Presents for further evaluation at this time. - Related Data Home Medications Medication Instructions Recorded Confirmed Topiramate [Topamax] 50 mg PO HS 07/27/18 09/12/20 Dextroamphetamine/Amphetamine 20 mg PO QAM 10/20/18 09/12/20 [Adderall Xr] Cholecalciferol (Vitamin D3) 125 mcg PO DAILY 07/07/20 09/12/20 [Vitamin D3 (5000 Iu)] Naproxen Sodium [Aleve] 220 mg PO DIRECTED PRN 07/07/20 09/12/20 Turmeric (Unknown Dose) 1 tab PO DAILY 07/07/20 09/12/20 valACYclovir HCL [Valtrex] 500 mg PO DAILY PRN 07/07/20 09/12/20 Previous Rx's Medication Instructions Recorded HYDROcodone/APAP 5-325MG [[place] 1 tab PO Q6HR PRN 3 Days #12 tab 12/07/21 5-325] Ibuprofen 800 mg PO Q8H PRN 7 Days #21 tab 12/07/21 Ondansetron Odt [Zofran Odt] 4 mg PO Q8HR PRN 3 Days #9 tab 12/07/21 Tamsulosin HCl [Flomax] 0.4 mg PO DAILY 7 Days #7 capsule 12/07/21 Allergies Allergy/AdvReac Type Severity Reaction Status Date / Time codeine Allergy Chest Verified 12/07/21 12:09 Pain, anxiety hydrocodone bitartrate AdvReac anxiety, Verified 12/07/21 12:09 [From Vicodin] chest pain Review of Systems ROS Statement: Those systems with pertinent positive or pertinent negative responses have been documented in the HPI. Review of Systems: CONST: Denies fever EYES: Denies blurry vision ENT: Denies nasal congestion C/V: Denies Chest pain RESP: Denies shortness of breath GI: Denies abdominal pain : Denies dysuria SKIN: Denies rash. MSK: Endorses back pain NEURO: Denies headache ROS Other: All systems not noted in ROS Statement are negative. Past Medical History Past Medical History: Asthma, Fibromyalgia, GERD/Reflux, Musculoskeletal Disorder, Neurologic Disorder, Syncope Additional Past Medical History / Comment(s): Basilar Artery Migraines, genital herpes, bulging disc, hypoglycemia, IBS, , low iron, menstrual periods irregular and heavy. History of Any Multi-Drug Resistant Organisms: None Reported Past Surgical History: Breast Surgery, Orthopedic Surgery Additional Past Surgical History / Comment(s): Right breast mass removed, right fifth digit surgery due to injury, left inner wrist ganglion cyst removal, left arm surgery with 3 pins/pins later removed. Past Anesthesia/Blood Transfusion Reactions: Motion Sickness, Postoperative Nausea & Vomiting (PONV) Additional Past Anesthesia/Blood Transfusion Reaction / Comment(s): . Past Psychological History: ADD/ADHD, Anxiety, Depression, PTSD Smoking Status: Never smoker Past Alcohol Use History: Occasional Past Drug Use History: Marijuana - Past Family History Mother Family Medical History: No Reported History General Exam - General Exam Comments Initial Comments: General: Appears in mild distress secondary to pain. HEAD: Normal with no signs of head trauma. EYES: PERRLA, EOMI, conjunctiva normal, no discharge. ENT: Hearing grossly intact, normal oropharynx. RESPIRATORY: Clear breath sounds bilaterally. No wheezes, rales, or rhonchi. C/V: Regular rate and rhythm. S1 and S2 auscultated, no edema, peripheral pulses 2+ and intact throughout ABD: Soft, nontender, nondistended. Does have some mild left flank tenderness to palpation. No tenderness of the bilateral CVAs. No tenderness to percussion. No guarding. No peritoneal signs. No rebound tenderness. EXT: Normal range of motion, no obvious deformity. Patient does have some lower thoracic and upper lumbar spine tenderness to palpation in the left sided paraspinal muscles. No midline tenderness to palpation of the cervical, thoracic, lumbar spines. SKIN: No rashes or lesions observed on exposed skin. NEURO: Alert and oriented x 4. Cranial nerves II-XII intact. No focal sensory or strength deficits. Able to ambulate. GCS of 15. Limitations: no limitations Course Vital Signs 12/07/21 12:07 Temperature 98 F Pulse Rate 92 Respiratory 20 Rate Blood Pressure 131/77 O2 Sat by Pulse 100 Oximetry Medical Decision Making - Medical Decision Making Based on the patient's presentation and physical exam, I'm concerned for multiple causes for her potential back and flank pain. Could be related to a known herniated disc and chronic fibromyalgia pain and chronic back pain. Does not have any signs or symptoms to be considered red flags for cauda equina syndrome. I cannot rule out kidney stone as a potential cause of her pain ei ther, particularly with her history of the left-sided kidney stone. I did discuss with her that I would like to obtain a ultrasound as well as x-ray to evaluate for hydronephrosis as well as a large kidney stone. CT obtained in September of this year showed a left lower pole nonobstructing renal calculi measuring 5 mm. We will also obtain basic laboratory studies, as well as a urinalysis. She was in agreement this plan. test will also be obtained. She'll be treated with IV analgesia and IV fluids. Patient's laboratory studies are all unremarkable, including a negative pre gnancy test. Urine does not show signs of infection. Blood work does not show signs of infection. KUB x-ray shows redemonstration of the 4 mm kidney stone in the lower pole of the left kidney. Ultrasound reveals a nonobstructing kidney stone. I discussed the findings with the patient. Exposed understanding. We'll treat her for possible small kidney stone with her pain radiating around her left flank. Could be related to her back pain. She was in agreement this plan. States that her pain is under control at this time. I will provide the patient with a prescription for [place], Zofran, ibuprofen, Flomax. I instructed the patient to follow up with their PCP in the next 1-3 days. . I explained that the patient should return to the emergency department if they experience any worsening symptoms. Strict return precautions were discussed with the patient. The patient expressed understanding of these instructions. I answered all questions that the patient had. The patient was discharged home in good condition with their prescriptions and follow up information. - Lab Data Result diagrams: 12/07/21 13:02 12/07/21 13:02 Lab Results 12/07/21 12/07/21 12/07/21 Range/Units 13:02 13:02 13:02 WBC 7.3 (3.8-10.6) k/uL RBC 4.48 (3.80-5.40) m/uL Hgb 13.4 (11.4-16.0) gm/dL Hct 41.7 (34.0-46.0) % MCV 92.9 (80.0-100.0) fL MCH 29.9 (25.0-35.0) pg MCHC 32.2 (31.0-37.0) g/dL RDW 13.1 (11.5-15.5) % Plt Count 253 (150-450) k/uL MPV 7.8 Neutrophils % 66 % Lymphocytes % 26 % Monocytes % 4 % Eosinophils % 1 % Basophils % 1 % Neutrophils # 4.8 (1.3-7.7) k/uL Lymphocytes # 1.9 (1.0-4.8) k/uL Monocytes # 0.3 (0-1.0) k/uL Eosinophils # 0.1 (0-0.7) k/uL Basophils # 0.1 (0-0.2) k/uL Sodium 139 (137-145) mmol/L Potassium 4.0 (3.5-5.1) mmol/L Chloride 107 (98-107) mmol/L Carbon Dioxide 21 L (22-30) mmol/L Anion Gap 11 mmol/L BUN 7 (7-17) mg/dL Creatinine 0.88 (0.52-1.04) mg/dL Est GFR (CKD-EPI)AfAm >90 (>60 ml/min/1.73 sqM) Est GFR (CKD-EPI)NonAf 88 (>60 ml/min/1.73 sqM) Glucose 88 (74-99) mg/dL Calcium 9.2 (8.4-10.2) mg/dL HCG, Qual Not Detected Urine Color Yellow Urine Appearance Cloudy H (Clear) Urine pH 7.0 (5.0-8.0) Ur Specific [place] 1.014 (1.001-1.035) Urine Protein Negative (Negative) Urine Glucose (UA) Negative (Negative) Urine Ketones Negative (Negative) Urine Blood Negative (Negative) Urine Nitrite Negative (Negative) Urine Bilirubin Negative (Negative) Urine Urobilinogen <2.0 (<2.0) mg/dL Ur Leukocyte Esterase Negative (Negative) Urine RBC 3 (0-5) /hpf Urine WBC 1 (0-5) /hpf Ur Squamous Epith Cells 3 (0-4) /hpf Urine Bacteria Rare H (None) /hpf Urine Mucus Occasional H (None) /hpf Disposition Clinical Impression: Kidney stone Disposition: HOME SELF-CARE Condition: Good Instructions (If sedation given, give patient instructions): Kidney Stones (ED) Prescriptions: Tamsulosin HCl [Flomax] 0.4 mg PO DAILY 7 Days #7 capsule Ibuprofen 800 mg PO Q8H PRN 7 Days #21 tab PRN Reason: Pain HYDROcodone/APAP 5-325MG [[place] 5-325] 1 tab PO Q6HR PRN 3 Days #12 tab PRN Reason: Pain Ondansetron Odt [Zofran Odt] 4 mg PO Q8HR PRN 3 Days #9 tab PRN Reason: Nausea Is patient prescribed a controlled substance at d/c from ED?: Yes When asked, does pt state using other controlled substances?: No If prescribed controlled substance>3 days was MAPS reviewed?: Prescribed <3 Days If opioid is for acute pain is fill amount 7 days or less?: Yes If Rx opioid, was Start Talking consent form obtained?: Yes Referrals: Valeria Waddell MD [Primary Care Provider] - 1-2 days Time of Disposition: 14:35
[2021-12-07 13:20] LABS: HCG,Qualitative Serum Not Detected
[2021-12-07 13:21] LABS: Appearance,Urine Cloudy (Clear); Bacteria,Urine Rare /hpf; Bilirubin,Urine Negative (Negative); Blood,Urine Negative (Negative); Color,Urine Yellow; Glucose,Urine (UA) Negative (Negative); Ketones,Urine Negative (Negative); Leukocyte Esterase,Urine Negative (Negative); Mucus,Urine Occasional /hpf; Nitrite,Urine Negative (Negative); Protein,Urine Negative (Negative); RBC,Urine 3 /hpf (0-5); Specific Gravity,Urine 1.014 (1.001-1.035); Squamous Epithelial Cell,Urine 3 /hpf (0-4); Urobilinogen,Urine <2.0 mg/dL (<2.0); WBC,Urine 1 /hpf (0-5)
[2021-12-07 13:24] LABS: African American GFR (CKD) >90 (>60 ml/min/1.73 sqM); Anion Gap 11 mmol/L; Blood Urea Nitrogen 7 mg/dL (7-17); Calcium 9.2 mg/dL (8.4-10.2); Carbon Dioxide 21 mmol/L (22-30); Chloride 107 mmol/L (98-107); Glucose 88 mg/dL (74-99); Non-African American GFR(CKD) 88 (>60 ml/min/1.73 sqM); Sodium 139 mmol/L (137-145)
--- NOTE | 2021-12-07 14:20 | XR ---
EXAMINATION TYPE: XR KUB DATE OF EXAM: 12/07/2021 COMPARISON: CT abdomen pelvis 10/15/2021. HISTORY: Pain TECHNIQUE: Upright KUB image of the abdomen is obtained with 2 radiographs. FINDINGS: Small bowel demonstrates no evidence for dilatation or air fluid levels. Gas and fecal material is seen in non-distended colon. No convincing evidence for pneumoperitoneum. Redemonstration of 4 mm calculus in the region of the lower pole of the left kidney when compared to prior CT. The lung bases are clear. The osseous structures are intact. IMPRESSION: 1. Overall nonobstructive bowel gas pattern. 2. Redemonstration of 4 mm calculus in the region of the lower pole of the left kidney when compared to prior CT.
--- NOTE | 2021-12-07 14:35 | US ---
EXAMINATION TYPE: US renals and bladder DATE OF EXAM: 12/07/2021 COMPARISON: NONE CLINICAL HISTORY: Left flank pain. Left flank pain hx of stones. EXAM MEASUREMENTS: Right Kidney: 9.7 x 3.1 x 3.7 cm Left Kidney: 10.4 x 4.3 x 3.5 cm Right Kidney: No hydronephrosis or masses seen . No shadowing calculi. Left Kidney: Echogenic area seen lower pole 8mm. No hydronephrosis or masses seen. Bladder: Not fully distended. Bilateral Jets seen: No IMPRESSION: * No evidence of obstructive uropathy. * Nonobstructing 8 millimeter left renal calculus.
== END 2021-12-07 15:10 | disposition home or self-care (01) ==
LOC: EC 12:03
DX: N20.0 Calculus of kidney (principal); J45.909 Unspecified asthma, uncomplicated; K21.9 Gastro-esophageal reflux disease without esophagitis; F41.9 Anxiety disorder, unspecified; F32.A Depression, unspecified; F12.90 Cannabis use, unspecified, uncomplicated; Z88.5 Allergy status to narcotic agent; Z79.51 Long term (current) use of inhaled steroids; Z79.899 Other long term (current) drug therapy
CPT/HCPCS: 36415; 80048; 85025; 81001; 84703; 74018; 76770; 99284; 96374; 96375; 96361; J1885; J1170

== ENCOUNTER 2022-01-03 16:42 | Emergency (ER) | payer OTHER ==
[2022-01-03] MEDS ORDERED: SODIUM CHLORIDE 0.9% 1,000 ML IV STA (18:50)
[2022-01-03] MEDS ORDERED: KETOROLAC 15 MG/ML 1 ML VIAL IVP STA (18:50)
[2022-01-03] MEDS ORDERED: DEXAMETHASONE SOD PHOSPHATE 10 MG/ML 1 ML VIAL IV STA (18:50)
[2022-01-03] MEDS ORDERED: diphenhydrAMINE 50 MG/ML 1 ML VIAL IVP STA (18:50)
--- NOTE | 2022-01-03 19:29 | ED ---
Headache HPI - General Chief Complaint: Headache Stated Complaint: migrane Time Seen by Provider: 01/03/22 18:49 Source: patient, RN notes reviewed, old records reviewed Mode of arrival: ambulatory Limitations: no limitations - History of Present Illness Initial Comments: 31-year-old female, alert and oriented 4, presents to emergency room with left sided migraine headache, similar to her previous migraine headaches. She states that she has more than 15 headaches a month. She was on Topamax was discontinued by her neurologist Dr. Vazquez related to kidney stones. She has no abortive medications at this time. Patient states she has nausea but no vomiting. No fevers, -: days(s) (1) Location: left, frontal (behind left eye), temporal, occipital Severity scale (1-10): 10 Quality: constant Consistency: constant Improves With: nothing Context: occurred at rest Associated Symptoms: nausea, sensitivity to sound - Related Data Home Medications Medication Instructions Recorded Confirmed Dextroamphetamine/Amphetamine 20 mg PO BID 10/20/18 01/03/22 [Adderall Xr] Cholecalciferol (Vitamin D3) 125 mcg PO DAILY 07/07/20 01/03/22 [Vitamin D3 (5000 Iu)] Naproxen Sodium [Aleve] 220 mg PO BID PRN 07/07/20 01/03/22 Previous Rx's Medication Instructions Recorded Ibuprofen 800 mg PO Q8H PRN 7 Days #21 tab 12/07/21 Ondansetron Odt [Zofran Odt] 4 mg PO Q8HR PRN 3 Days #9 tab 12/07/21 Allergies Allergy/AdvReac Type Severity Reaction Status Date / Time codeine Allergy Chest Verified 01/03/22 20:42 Pain, anxiety hydrocodone bitartrate AdvReac anxiety, Verified 01/03/22 20:42 [From Vicodin] chest pain Review of Systems ROS Statement: Those systems with pertinent positive or pertinent negative responses have been documented in the HPI. ROS Other: All systems not noted in ROS Statement are negative. Past Medical History Past Medical History: Asthma, Fibromyalgia, GERD/Reflux, Musculoskeletal Disor phyllis, Neurologic Disorder, Syncope Additional Past Medical History / Comment(s): Basilar Artery Migraines, genital herpes, bulging disc, hypoglycemia, IBS, , low iron, menstrual periods irregular and heavy. History of Any Multi-Drug Resistant Organisms: None Reported Past Surgical History: Breast Surgery, Orthopedic Surgery Additional Past Surgical History / Comment(s): Right breast mass removed, right fifth digit surgery due to injury, left inner wrist ganglion cyst removal, left arm surgery with 3 pins/pins later removed. Past Anesthesia/Blood Transfusion Reactions: Motion Sickness, Postoperative Nausea & Vomiting (PONV) Additional Past Anesthesia/Blood Transfusion Reaction / Comment(s): . Past Psychological History: ADD/ADHD, Anxiety, Depression, PTSD Smoking Status: Never smoker Past Alcohol Use History: Occasional Past Drug Use History: Marijuana - Past Family History Mother Family Medical History: No Reported History General Exam Limitations: no limitations General appearance: alert, in no apparent distress Head exam: Present: atraumatic, normocephalic, normal inspection Eye exam: Present: normal appearance, EOMI. Absent: scleral icterus, conjunctival injection, nystagmus, periorbital swelling Neck exam: Present: normal inspection, full ROM. Absent: tenderness, meningismus Respiratory exam: Present: normal lung sounds bilaterally. Absent: respiratory distress, wheezes, rales, rhonchi, stridor, chest wall tenderness, accessory muscle use Cardiovascular Exam: Present: regular rate GI/Abdominal exam: Present: soft Back exam: Absent: CVA tenderness (R), CVA tenderness (L) Neurological exam: Present: alert, oriented X3, CN II-XII intact Psychiatric exam: Present: normal affect, normal mood Skin exam: Present: warm, dry, normal color. Absent: cyanosis, diaphoretic, erythema, petechiae, pallor Course Vital Signs 01/03/22 01/03/22 01/03/22 17:24 20:22 21:29 Temperature 97.8 F 98.5 F Pulse Rate 87 77 Respiratory 20 16 16 Rate Blood Pressure 127/77 133/72 O2 Sat by Pulse 100 98 Oximetry Medical Decision Making - Medical Decision Making Patient was given Decadron, Benadryl, Toradol and IV fluids with complete resolution of her headache. She states this headache is similar to her previous migraine headaches. Patient has no focal neurological deficits. She states she was taken off Topamax due to kidney stones. She was directed to follow-up with her neurologist and primary care doctor to discuss abortive medications since she is having more than 15 headaches a month. She was directed to return to the emergency room with any new or concerning symptoms. Vital signs are stable. Case discussed with Dr. Spencer who is agreeable to this plan of care. Disposition Clinical Impression: Headache Disposition: HOME SELF-CARE Condition: Good Instructions (If sedation given, give patient instructions): Acute Headache (ED) Additional Instructions: Tylenol and Motrin as needed for headaches. Follow-up with your neurologist for continuation of care or your migraine headaches and discuss abortive medications. Increase your fluid intake. Return to the emergency room with any new or concerning symptoms. Is patient prescribed a controlled substance at d/c from ED?: No Referrals: Valeria Waddell MD [Primary Care Provider] - 1-2 days Time of Disposition: 20:37
[2022-01-03 20:23] VITALS: RESP 16
[2022-01-03 21:30] VITALS: BP 133/72; PULSE 77; TEMP 98.5
== END 2022-01-03 21:30 | disposition home or self-care (01) ==
LOC: EC 16:42
DX: G43.909 Migraine, unspecified, not intractable, without status migrainosus (principal); J45.909 Unspecified asthma, uncomplicated; K21.9 Gastro-esophageal reflux disease without esophagitis; F41.9 Anxiety disorder, unspecified; F32.A Depression, unspecified; F12.90 Cannabis use, unspecified, uncomplicated; Z88.5 Allergy status to narcotic agent; Z79.899 Other long term (current) drug therapy
CPT/HCPCS: 99283; 96374; 96375 ×2; 96361 ×2; J1200; J1100; J1885

== ENCOUNTER 2022-02-17 12:59 | Emergency (ER) | payer OTHER ==
[2022-02-17 13:08] VITALS: TEMP 98.6
[2022-02-17] MEDS ORDERED: METOCLOPRAMIDE 5 MG/ML 2 ML VIAL IVP STA (13:30)
[2022-02-17] MEDS ORDERED: diphenhydrAMINE 50 MG/ML 1 ML VIAL IVP STA (13:30)
[2022-02-17] MEDS ORDERED: KETOROLAC 15 MG/ML 1 ML VIAL IVP STA (13:30)
[2022-02-17] MEDS ORDERED: SODIUM CHLORIDE 0.9% 1,000 ML IV ONE (13:30)
--- NOTE | 2022-02-17 14:27 | ED ---
Headache HPI - General Chief Complaint: Headache Stated Complaint: migraine Time Seen by Provider: 02/17/22 13:11 Source: patient, RN notes reviewed Mode of arrival: ambulatory Limitations: no limitations - History of Present Illness Initial Comments: 31-year-old female presents emergency Department chief complaint of migraine headache. Patient states she has chronic migraines in which she does see Dr. Vazquez neurology for. Patient was on Topamax and additional medication for her headaches with a recent stopped secondary to kidney stones. Patient states she's had this headache for 3 days feels very similar to her her normal migraines left-sided photophobic nausea. - Related Data Home Medications Medication Instructions Recorded Confirmed Dextroamphetamine/Amphetamine 20 mg PO BID PRN 10/20/18 02/17/22 [Adderall Xr] Omeprazole 20 mg PO DAILY 02/17/22 02/17/22 Allergies Allergy/AdvReac Type Severity Reaction Status Date / Time codeine Allergy Chest Verified 02/17/22 14:13 Pain, anxiety hydrocodone bitartrate AdvReac anxiety, Verified 02/17/22 14:13 [From Vicodin] chest pain Review of Systems ROS Statement: Those systems with pertinent positive or pertinent negative responses have been documented in the HPI. ROS Other: All systems not noted in ROS Statement are negative. Past Medical History Past Medical History: Asthma, Fibromyalgia, GERD/Reflux, Musculoskeletal Disorder, Neurologic Disorder, Syncope Additional Past Medical History / Comment(s): Basilar Artery Migraines, genital herpes, bulging disc, hypoglycemia, IBS, , low iron, menstrual periods irregular and heavy, heart murmur and leaky valve, gastritis History of Any Multi-Drug Resistant Organisms: None Reported Past Surgical History: Breast Surgery, Orthopedic Surgery Additional Past Surgical History / Comment(s): Right breast mass removed, right fifth digit surgery due to injury, left inner wrist ganglion cyst removal, left arm surgery with 3 pins/pins later removed. Past Anesthesia/Blood Transfusion Reactions: Motion Sickness, Postoperative Nausea & Vomiting (PONV) Additional Past Anesthesia/Blood Transfusion Reaction / Comment(s): . Past Psychological History: ADD/ADHD, Anxiety, Depression, PTSD Smoking Status: Never smoker Past Alcohol Use History: Occasional Past Drug Use History: Marijuana - Past Family History Mother Family Medical History: No Reported History General Exam Limitations: no limitations General appearance: alert, in no apparent distress Head exam: Present: atraumatic, normocephalic, normal inspection Eye exam: Present: normal appearance, PERRL, EOMI. Absent: scleral icterus, conjunctival injection, periorbital swelling ENT exam: Present: normal exam, mucous membranes moist Neck exam: Present: normal inspection, full ROM. Absent: tenderness, meningismus, lymphadenopathy Respiratory exam: Present: normal lung sounds bilaterally. Absent: respiratory distress, wheezes, rales, rhonchi, stridor Cardiovascular Exam: Present: regular rate, normal rhythm, normal heart sounds. Absent: systolic murmur, diastolic murmur, rubs, gallop, clicks Course Vital Signs 02/17/22 13:05 Temperature 98.6 F Pulse Rate 89 Respiratory 16 Rate Blood Pressure 116/80 O2 Sat by Pulse 98 Oximetry Medical Decision Making - Medical Decision Making 31-year-old presented for migraine headache. Headache resolved she states she feels control discharge and follow-up in urology. Return parameters were discussed. Disposition Clinical Impression: Migraine headache Disposition: HOME SELF-CARE Condition: Stable Instructions (If sedation given, give patient instructions): Acute Headache (ED) Additional Instructions: Please return to the Emergency Department if symptoms worsen or any other concerns. Is patient prescribed a controlled substance at d/c from ED?: No Referrals: Valeria Waddell MD [Primary Care Provider] - 1-2 days Time of Disposition: 14:27
[2022-02-17 14:38] VITALS: BP 114/57; PULSE 88; RESP 18
== END 2022-02-17 14:38 | disposition home or self-care (01) ==
LOC: EC 12:59
DX: G43.909 Migraine, unspecified, not intractable, without status migrainosus (principal); J45.909 Unspecified asthma, uncomplicated; K21.9 Gastro-esophageal reflux disease without esophagitis; F90.9 Attention-deficit hyperactivity disorder, unspecified type; F41.9 Anxiety disorder, unspecified; F32.A Depression, unspecified; F12.90 Cannabis use, unspecified, uncomplicated; Z79.83 Long term (current) use of bisphosphonates; Z79.899 Other long term (current) drug therapy; Z88.5 Allergy status to narcotic agent
CPT/HCPCS: 99283; 96374; 96375 ×2; 96361; J1200; J2765; J1885

== ENCOUNTER → 2023-02-23 | Outpatient (CLI) | payer OTHER ==
[2023-02-23 14:55] VITALS: BP 122/85; PULSE 85; RESP 15; TEMP 98.8
--- NOTE | 2023-02-23 15:01 | P.PAINPG ---
PQRS Measure Charge Sheet Comment: HISTORY OF PRESENT ILLNESS: A 32 yr old female as a referral from Dr Vazquez presents today w severe and chronic Head and Neck pain x 22 yrs secondary to occipital neuralgia/ cervicogenic PORTER for evaluation. Pt states pain level is provoked at 10/10 in intensity, constant, localized in the upper neck, tight in character w shooting pain towards the scalp. Pain causes migraine per pt. Pain is provoked by stress, changes in weather or neck positions while lying on pillow. Pain is alleviated by injections in the past, heat, medications (Ibu), topical, repositioning, hot showers and rest. Past Medical History: Asthma, GERD/Reflux, Musculoskeletal Disorder, Neurologic Disorder, Syncope Additional Past Medical History / Comment(s): Basilar Artery Migraines; genital herpes; bulging disc; hypoglycemia, fibromyalgia, IBS, no current asthma meds., low iron, menstrual periods irregular and heavy. History of Any Multi-Drug Resistant Organisms: None Reported Past Surgical History: Breast Surgery, Orthopedic Surgery Additional Past Surgical History / Comment(s): Right breast mass removed ; Right fifth digit surgery due injury; Left inner wrist ganglion cyst removal; left arm surgery Past Anesthesia/Blood Transfusion Reactions: Motion Sickness, Postoperative Nausea & Vomiting (PONV) Additional Past Anesthesia/Blood Transfusion Reaction / Comm: . Past Psychological History: ADD/ADHD, Anxiety, Depression, PTSD Smoking Status: Never smoker Past Alcohol Use History: Occasional Additional Past Alcohol Use History / Comment(s): denies hx of cigarettes. Past Drug Use History: Marijuana Additional Drug Use History / Comment(s): smokes marijuana daily - Past Family History Mother Family Medical History: Seizure Disorder REVIEW OF ORGAN SYSTEMS: CONSTITUTIONAL: No fevers or chills. No recent weight loss. NEUROLOGICAL: + numbness and tingling along the distal extremities. No seizure disorders or headaches. MUSCULOSKELETAL: + pain PSYCHIATRIC: Denies current depression or suicidal thoughts. Physical Examinations : Constitutional : Cooperative , not in acute distress . Neurologic : Cranial nerve II to XII intact. No focal neurological deficits. Psychiatric : alert & oriented x 3. Matching mood & appropriate affect. Judgment & insight intact. Musculoskeletal : Cervical Spine +BL ROLANDO TTP Motor strength in the deltoid and biceps: Normal right side. Normal Left side Motor strength biceps and the wrist extensors: Normal right side . Normal left side Motor strength in the triceps muscle: Normal right side. Normal left side Deep tendon reflexes: Normal at the biceps. Normal at Brachioradialis. Normal at triceps Vertebral body tenderness to deep palpation over Cervical facet loading test: positive bilaterally Spurling test: positive bilaterally Neck distraction test: positive bila terally Eloisa sign: positive bilaterally Lumbar spine Motor strength lower extremities ,thigh and legs 5/5 Right side , 5/5 Left side Deep tendon reflexes : Normal Knee Jerk. Normal Ankle Jerk Vertebral body tenderness over Smith Test positive Lumbar facet Loading Test: positive Right / positive Left Range of motion of the lumbar spine Flexion 30 degrees, extension 10 degrees Straight Leg Raise test: Left/ Right positive at degree Darcy test: positive right / positive left. Severe tenderness over the Sacroiliac joint on the Right / Left sides Gaenslen test: positive bilaterally Seated flexion test: positive bilaterally. Sacral spine : Severe tenderness over the Sacroiliac joint: right side / left side Range of motion: Flexion of the lumbar spine <60 degrees Range of motion: Extension of the lumbar spine <20 degrees Gaenslen's Test positive Darcy test: positive right side / left side Thigh Thrust Test Sacral Thrust Test Assessment/ Plan : Occipital Neuralgia/ Cervicogenic PORTER Recommendation of BL ROLANDO injections. May need a series of injections for optimal pain relief. Risks, benefits of procedure discussed and patient verbalized understanding. Admits to anti- coagulant use or medical history of diabetes. Protocol for discontinuation/ continuation of medications qi procedure discussed. Minimal anesthesia provided, if clinically indicated, consisting of Versed and Fentanyl. All questions answered. I have spent greater than 30 minutes on patient care today. Dr Espinoza was available by phone for the evaluation of this patient. The time was used to review the medical records including relevant urine studies and Prescription history (MAPs), review of the available imaging, evaluation and examination of the patient, coordination of care with the medical staff and if applicable referring physicians, as well as creation of the medical record PQRS Narrative: Smoking Status Never smoker Hx Alcohol Use (MH) No Home Medications: Ambulatory Orders Dextroamphetamine/Amphetamine [Adderall Xr] 20 mg PO BID PRN 10/20/18 Omeprazole 20 mg PO DAILY 02/17/22 Controlled Substance Measures - Controlled Substance Measures Is patient prescribed a controlled substance at discharge?: No
== END ==
LOC: PNWHC3 13:38
PROVIDERS: ATTEND Specialist
DX: M54.81 Occipital neuralgia (principal); G44.86 Cervicogenic headache; J45.909 Unspecified asthma, uncomplicated; K21.9 Gastro-esophageal reflux disease without esophagitis; Z88.5 Allergy status to narcotic agent
CPT/HCPCS: 99211

== ENCOUNTER 2023-03-10 09:15 | Day surgery (SDC) | payer OTHER ==
[2023-03-08 08:53] VITALS: BMI 19.3
[2023-03-10 10:00] VITALS: TEMP 98.2
[2023-03-10] MEDS ORDERED: ROPIVACAINE 5MG/ML 20ML VIAL ONE (10:36)
[2023-03-10] MEDS ORDERED: methylPREDNISolone ACETATE 80 MG/ML 1 ML VIAL ONE (10:36)
[2023-03-10 11:20] VITALS: BP 112/78; PULSE 77; RESP 18
--- NOTE | 2023-03-10 14:02 | P.PCN ---
Date of Procedure: 03/10/23 Description of Procedure: Preoperative diagnoses= 1- Greater occipital neuralgia Postoperative diagnoses= 1-greater occipital neuralgia Procedure= Bilateral Greater occipital nerve block Anesthesia= moderate sedation with Versed mg and fentanyl micrograms . Local infiltration of 1% lidocaine. Continuous pulse ox, EKG, blood pressure and verbal communication was maintained with the patient in the OR. . Estimated blood loss=minimal. Procedure indication= the patient had a history of severe chronic neck pain ,and headache, diagnosed with occipital neuralgia exam was positive for severe tenderness over the occipital nerve, she will be a good candidate occipital nerve block, patient failed conservative management. Discussed with the patient the procedure, alternative, complications including infection, bleeding, nerve damage, aggravation of pain all of which could be permanent. Patient understands and QUESTIONS were answered. Procedure description= patient was placed in the sitting position or table and the neck area was prepped and draped with a sterile fashion. At the junction of right sternocleidomastoid muscle with trapezius muscle close to right superior nucheal line was identified, occipital artery was palpated. Just medial to the occipital artery 25-gauge needle attached to a syringe was introduced. Then after negative aspiration for heme and CSF and there was no paresthesia during the injection, 3 ml of Robivacaine 0.5% and 20 mg of Depo-Medrol injected total volume 4 mL after negative aspiration, the needle removed. Entire same procedure was repeated for the left Greater occipital nerve. The patient returned to supine position after the back was cleaned and a Band- Aid applied. Disposition= patient tolerated the procedure well. No complication. Discharged home in stable condition.
== END 2023-03-10 11:22 | disposition home or self-care (01) ==
LOC: ORPAIN 09:15
PROVIDERS: ATTEND Pain Medicine Interventional Pain Medicine
DX: M54.81 Occipital neuralgia (principal); G44.86 Cervicogenic headache
CPT/HCPCS: 81025; 64405; 99152; J1040; J2795

== ENCOUNTER → 2023-05-18 | Outpatient (CLI) | payer OTHER ==
[2023-05-18 10:20] VITALS: BP 106/69; PULSE 80; RESP 16; TEMP 98
--- NOTE | 2023-05-18 11:03 | P.PAINPG ---
PQRS Measure Charge Sheet Comment: HISTORY OF PRESENT ILLNESS: A 32 yr old female presents today w severe and chronic Head and Neck pain x 22 yrs secondary to occipital neuralgia/ cervicogenic PORTER for evaluation s/p BL ROLANDO injections #1. Pt states she experienced 0 % pain relief x 10 wks s/p procedure. Pt states pain level is provoked at 10/10 in intensity, constant, localized in the upper neck, tight in character w shooting pain towards the scalp. Pain causes migraine per pt. Pain is provoked by stress, changes in weather or neck positions while lying on pillow. Pain is alleviated by PT x 1 wks which she just started in Apr 2023, physician guided neck exercises provided by this clinic which she will start this week, injections in the past, heat, topical, repositioning, hot showers and rest. PMH: Asthma, GERD, Migraines, Syncope, Fibromyalgia, IBS, ADD/ ADHD, PTSD PSH: R Breast Lumpectomy, R 5th Digit Surgery, L Wrist Ganglionectomy, LUE Surgery SH: Never smoker, Occasional ETOH use, Cannabis use FH: Mo- Seizure Disorder All: See list Meds: See list REVIEW OF ORGAN SYSTEMS: CONSTITUTIONAL: No fevers or chills. No recent weight loss. NEUROLOGICAL: + numbness and tingling along the distal extremities. No seizure disorders or headaches. MUSCULOSKELETAL: + pain PSYCHIATRIC: Denies current depression or suicidal thoughts. Physical Examinations : Constitutional : Cooperative , not in acute distress . Neurologic : Cranial nerve II to XII intact. No focal neurological deficits. Psychiatric : alert & oriented x 3. Matching mood & appropriate affect. Judgment & insight intact. Musculoskeletal : Cervical Spine Motor strength in the deltoid and biceps: Normal right side. Normal Left side Motor strength biceps and the wrist extensors: Normal right side . Normal left side Motor strength in the triceps muscle: Normal right side. Normal left side Deep tendon reflexes: Normal at the biceps. Normal at Brachioradialis. Normal at triceps Vertebral body tenderness to deep palpation over Cervical facet loading test: positive bilaterally C2-C3, C3-C4 Spurling test: positive bilaterally Neck distraction test: positive bilaterally Eloisa sign: positive bilaterally Lumbar spine Motor strength lower extremities ,thigh and legs 5/5 Right side , 5/5 Left side Deep tendon reflexes : Normal Knee Jerk. Normal Ankle Jerk Vertebral body tenderness over Smith Test positive Lumbar facet Loading Test: positive Right / positive Left Range of motion of the lumbar spine Flexion 30 degrees, extension 10 degrees Straight Leg Raise test: Left/ Right positive at degree Darcy test: positive right / positive left. Severe tenderness over the Sacroiliac joint on the Right / Left sides Gaenslen test: positive bilaterally Seated flexion test: positive bilaterally. Sacral spine : Severe tenderness over the Sacroiliac joint: right side / left side Range of motion: Flexion of the lumbar spine <60 degrees Range of motion: Extension of the lumbar spine <20 degrees Gaenslen's Test positive Darcy test: positive right side / left side Thigh Thrust Test Sacral Thrust Test Assessment/ Plan : Occipital Neuralgia/ Cervicogenic PORTER Recommendation of BL MBB C2-C3, C3-C4 #1. May need a series of injections, up until RFA, for optimal pain relief. Risks, benefits of procedure discussed and patient verbalized understanding. Admits to anti- coagulant use or medical history of diabetes. Protocol for discontinuation/ continuation of medications qi procedure discussed. Minimal anesthesia provided, if clinically indicated, consisting of Versed and Fentanyl. All questions answered. I have spent greater than 30 minutes on patient care today. Dr Espinoza was available by phone for the evaluation of this patient. The time was used to review the medical records including relevant urine studies and Prescription history (MAPs), review of the available imaging, evaluation and examination of the patient, coordination of care with the medical staff and if applicable referring physicians, as well as creation of the medical record PQRS Narrative: Smoking Status Never smoker Hx Alcohol Use (MH) No Home Medications: Ambulatory Orders Dextroamphetamine/Amphetamine [Adderall Xr] 20 mg PO BID PRN 10/20/18 Ubrogepant [Ubrelvy] 50 mg PO DIRECTED PRN 03/08/23 Controlled Substance Measures - Controlled Substance Measures Is patient prescribed a controlled substance at discharge?: No
== END ==
LOC: PNWHC3 09:09
PROVIDERS: ATTEND Specialist
DX: M54.81 Occipital neuralgia (principal); G44.86 Cervicogenic headache; J45.909 Unspecified asthma, uncomplicated; K21.9 Gastro-esophageal reflux disease without esophagitis; G43.909 Migraine, unspecified, not intractable, without status migrainosus; M79.7 Fibromyalgia; K58.9 Irritable bowel syndrome, unspecified; F98.8 Other specified behavioral and emotional disorders with onset usually occurring in childhood and adolescence; F90.9 Attention-deficit hyperactivity disorder, unspecified type; F43.10 Post-traumatic stress disorder, unspecified; F12.90 Cannabis use, unspecified, uncomplicated; Z88.5 Allergy status to narcotic agent
CPT/HCPCS: 99211

== ENCOUNTER 2023-06-03 08:54 | Day surgery (SDC) | payer OTHER ==
[2023-05-31 10:06] VITALS: BMI 18.8
[2023-06-03 09:21] LABS: Glucose,Whole Blood 91 mg/dL (70-110)
[2023-06-03] MEDS: LACTATED RINGERS 1,000 ML IV SCH (09:21)
[2023-06-03] MEDS ORDERED: MIDAZOLAM 2 MG/2 ML VIAL ONE (09:22)
[2023-06-03] MEDS ORDERED: DEXAMETHASONE SOD PHOSPHATE 10 MG/ML 1 ML VIAL ONE (09:26)
[2023-06-03] MEDS ORDERED: ROPIVACAINE 5MG/ML 20ML VIAL ONE (09:26)
[2023-06-03 09:32] VITALS: TEMP 97.4
--- NOTE | 2023-06-03 09:44 | P.PCN ---
Date of Procedure: 06/03/23 Surgeon: Clyde Sibley Pathology: none sent Condition: stable Disposition: PACU Description of Procedure: PREOPERATIVE DIAGNOSIS: Cervicogenic headache ,Cervical Spondylosis with Facet Arthropathy.without myelopathy POSTOPERATIVE DIAGNOSIS: Same as above PROCEDURES: Diagnostic Bilateral medial branch block under fluoroscopic guidance for levels C2,C3, C4 and third occipital nerve bilaterally ANESTHESIA: Local with 1% lidocaine; IV sedation by the anesthesia Department EBL: Minimal PROCEDURE INDICATION: The patient with neck pain secondary to cervical arthropathy unresponsive to more conservative treatments. PROCEDURE DESCRIPTION / TECHNIQUE: The patient was seen and identified in the preoperative area. Risks, benefits, complications, and alternatives were discussed with the patient, the patient agreed to proceed with the procedure and signed the consent. IV was started. Vital signs remained stable throughout the procedure. Patient was taken to the OR and time out was completed. The patient was placed in the supine position on the procedure table. . The cervical area was prepped with chloraprep and draped in the usual sterile fashion. Critical pause was taken. Vital signs were closely monitored during the procedure. Conscious sedation was used during the procedure to decrease patients anxiety. Using cross-table lateral fluoroscopy, the centers of the trapezoid of C2,C3,C4 were identified, marked, and localized with 1% lidocaine 1 ml at each level for skin and Sub Q infiltrations then in the middle of the joint line between C2 and C3 was identified skin was marked at this area localized with lidocaine 1% as a target point for the third occipital nerve block.. Subsequently, a 25 G 2 inch spinal needle was advanced guided by fluoroscopy to the target points me ntioned above. Subsequently, 3 ml of preservative-free Ropivacaine 0.5% mixed with Dexamethasone 10 mg and 0.5 ml of the mixture was injected at each level after negative aspiration for blood and CSF. [place] were then removed intact the same procedure was repeated on the left side in the same manner. COMPLICATIONS: No acute complications. DISPOSITION / PLANS: The patient was placed in a supine position and transferred to the recovery area in a stable condition for observation and was discharged from the recovery room after meeting discharge criteria. Home discharge instructions given to the patient by the staff. The patient was reexamined prior to discharge. The patient will schedule a follow up in the clinic in 2-4 weeks.
[2023-06-03] MEDS: IV FLUID CONTINUATION 700 ML IV ONE (09:49)
--- NOTE | 2023-06-03 10:33 | FL ---
EXAMINATION TYPE: FL guided pain mgmt statistic DATE OF EXAM: 06/03/2023 HISTORY: Fluoroscopy time Total dose area product (DAP) in uGy*m?, mGy*cm? (or similar): 0.43703 IMPRESSION: 1. Fluoroscopy time.
[2023-06-03 10:34] VITALS: BP 110/74; PULSE 88; RESP 20
== END 2023-06-03 10:16 | disposition home or self-care (01) ==
LOC: ORPAIN 08:54
PROVIDERS: ATTEND Anesthesiology
DX: M47.812 Spondylosis without myelopathy or radiculopathy, cervical region (principal); I38 Endocarditis, valve unspecified; J45.909 Unspecified asthma, uncomplicated; F90.9 Attention-deficit hyperactivity disorder, unspecified type; K58.9 Irritable bowel syndrome, unspecified; F43.10 Post-traumatic stress disorder, unspecified; Z98.890 Other specified postprocedural states; Z79.899 Other long term (current) drug therapy; Z88.5 Allergy status to narcotic agent
CPT/HCPCS: 81025; 64490; 64491 ×2; 99152; J2250; J1100; J2795

== ENCOUNTER → 2023-06-29 | Outpatient (CLI) | payer OTHER ==
--- NOTE | 2023-06-29 14:08 | P.PAINPG ---
Objective - Vital Signs Vital signs: Intake & Output 06/28/23 06/29/23 06/29/23 18:59 06:59 18:59 Weight 45.359 kg PQRS Measure Charge Sheet Comment: HISTORY OF PRESENT ILLNESS: A 32 yr old female presents today w severe and chronic Head and Neck pain x 22 yrs secondary to occipital neuralgia/ cervicogenic PORTER for evaluation s/p BL MBB C2-C3, C3-C4 #1. Pt states she experienced 90 % pain relief x 2 wks s/p procedure. Pt states pain level is provoked at 6 /10 in intensity, constant, localized in the upper neck, tight in character w shooting pain towards the scalp. Pain causes migraine per pt. Pain is provoked by stress, changes in weather or neck positions while lying on pillow. Pain is alleviated by PT x 6 wks which ended in May 2023, physician guided exercise regimen (Cervical) daily since Apr 2023, injections in the past, heat, topical, repositioning, hot showers and rest. Cervical disability score of 12. Interventional procedures include BL MBB C2-4 x1 Medications include Cannabis use REVIEW OF ORGAN SYSTEMS: CONSTITUTIONAL: No fevers or chills. No recent weight loss. NEUROLOGICAL: + numbness and tingling along the distal extremities. No seizure disorders or headaches. MUSCULOSKELETAL: + pain PSYCHIATRIC: Denies current depression or suicidal thoughts. Physical Examinations : Constitutional : Cooperative , not in acute distress . Neurologic : Cranial nerve II to XII intact. No focal neurological deficits. Psychiatric : alert & oriented x 3. Matching mood & appropriate affect. Judgment & insight intact. Musculoskeletal : Cervical Spine Motor strength in the deltoid and biceps: Normal right side. Normal Left side Motor strength biceps and the wrist extensors: Normal right side . Normal left side Motor strength in the triceps muscle: Normal right side. Normal left side Deep tendon reflexes: Normal at the biceps. Normal at Brachioradialis. Normal at triceps Vertebral body tenderness to deep palpation over Cervical facet loading test: positive bilaterally C2-C3, C3-C4 Spurling test: positive bilaterally Neck distraction test: positive bilaterally Eloisa sign: positive bilaterally Lumbar spine Motor strength lower extremities ,thigh and legs 5/5 Right side , 5/5 Left side Deep tendon reflexes : Normal Knee Jerk. Normal Ankle Jerk Vertebral body tenderness over Smith Test positive Lumbar facet Loading Test: positive Right / positive Left Range of motion of the lumbar spine Flexion 30 degrees, extension 10 degrees Straight Leg Raise test: Left/ Right positive at degree Darcy test: positive right / positive left. Severe tenderness over the Sacroiliac joint on the Right / Left sides Gaenslen test: positive bilaterally Seated flexion test: positive bilaterally. Sacral spine : Severe tenderness over the Sacroiliac joint: right side / left side Range of motion: Flexion of the lumbar spine <60 degrees Range of motion: Extension of the lumbar spine <20 degrees Gaenslen's Test positive Darcy test: positive right side / left side Thigh Thrust Test Sacral Thrust Test Assessment/ Plan : Occipital Neuralgia/ Cervicogenic PORTER Recommendation of BL MBB C2-C3, C3-C4 #2. May need a series of injections, up until RFA, for optimal pain relief. Risks, benefits of procedure discussed and patient verbalized understanding. Admits to anti- coagulant use or medical history of diabetes. Protocol for discontinuation/ continuation of medications qi procedure discussed. Minimal anesthesia provided, if clinically indicated, consisting of Versed and Fentanyl. All questions answered. I have spent greater than 30 minutes on patient care today. Dr Espinoza was available by phone for the evaluation of this patient. The time was used to review the medical records including relevant urine studies and Prescription history (MAPs), review of the available imaging, evaluation and examination of the patient, coordination of care with the medical staff and if applicable referring physicians, as well as creation of the medical record PQRS Narrative: Smoking Status Never smoker Hx Alcohol Use (MH) No Home Medications: Ambulatory Orders Dextroamphetamine/Amphetamine [Adderall Xr] 20 mg PO BID PRN 10/20/18 Ubrogepant [Ubrelvy] 50 mg PO DIRECTED PRN 03/08/23 Controlled Substance Measures - Controlled Substance Measures Is patient prescribed a controlled substance at discharge?: No
[2023-06-29 14:30] VITALS: BP 122/72; PULSE 101; RESP 15; TEMP 98.1
== END ==
LOC: PNWHC3 13:50
PROVIDERS: ATTEND Specialist
DX: M54.81 Occipital neuralgia (principal); G44.86 Cervicogenic headache; Z88.5 Allergy status to narcotic agent
CPT/HCPCS: 99211

== ENCOUNTER 2023-07-22 08:51 | Day surgery (SDC) | payer OTHER ==
[2023-07-19 10:00] VITALS: BMI 18.3
[2023-07-22 09:21] LABS: Glucose,Whole Blood 91 mg/dL (70-110)
[2023-07-22] MEDS: LACTATED RINGERS 1,000 ML IV SCH (09:21)
[2023-07-22 09:42] VITALS: TEMP 97.4
[2023-07-22] MEDS ORDERED: MIDAZOLAM 2 MG/2 ML VIAL ONE (10:20)
[2023-07-22] MEDS ORDERED: fentaNYL (PF) 50 MCG/ML 2 ML AMP ONE (10:20)
[2023-07-22] MEDS ORDERED: ROPIVACAINE 5MG/ML 20ML VIAL ONE (10:23)
[2023-07-22] MEDS: LACTATED RINGERS 1,000 ML IV ONE (10:56)
--- NOTE | 2023-07-22 11:10 | P.PCN ---
Description of Procedure: Preprocedure diagnosis. Cervical facet joint arthropathy, cervical spine spondylosis, cervical degenerative disc disease. Postprocedure diagnosis. As above. Procedure done. Bilateral C2-3, C3-4 facet joint (C3,C4 medial branch of dorsal ramus and third occipital nerve) diagnostic injection with local anesthetics under fluoroscopic guidance. Anesthesia. As per anesthesia department. Continuous pulse ox, EKG, blood pressure and verbal communication was maintained with the patient in OR. Blood loss. None. Indication. Patient has got the diagnoses of cervical spondylolysis, facet joint arthropathy with neck pain. Discussed with the patient procedure, alternatives, complications including infection, bleeding, nerve damage, paralysis all of which could be permanent. Patient understands and all questions are answered. Procedure note. After getting consent patient in OR in prone position. Back of the neck was prepped with chlorhexidine and draped in sterile fashion. After injecting 3 mL of plain 1% lidocaine subcutaneously, a 22-gauge spinal needle was introduced under tunnel vision of the fluoroscope AP view at the waist of the articular pillar (lateral mass) at C4 vertebral level. In the lateral view of the fluoroscope it was confirmed that the tip of the needle stayed within the dorsal half of the articular pillar (lateral mass). So, right C3-4 facet joint was targeted by blocking right C4 and C3 medial branch, right C2-3 facet joint was targeted by blocking right C3 medial branch and third occipital nerve. In exactly the same way , after subcutaneous injection of lidocaine, 22-gauge spinal needles were introduced under tunnel vision of the fluoroscope AP view at the waist of the articular pillars (lateral mass) at C3 vertebral level. In the lateral view of the fluoroscope it was confirmed that the tip of the needle stayed within the dorsal half of the articular pillar (lateral mass). To target third occipital nerve needle was placed at the lateral border of right C2-3 zygapophyseal joint itself. At each needle, 0.5 mL of 0.5% ropivacaine preservative-free was injected. In exactly same way left C2-3, C3-4 facet joints were targeted by blocking left third occipital nerve and C3, C4 medial branch of dorsal ramus. After the procedure needle was taken out and bandage was applied. Disposition. Patient tolerated the procedure well. No complication. Discharged home in stable condition.
--- NOTE | 2023-07-22 11:36 | FL ---
EXAMINATION TYPE: FL guided pain mgmt statistic DATE OF EXAM: 07/22/2023 HISTORY: Fluoroscopy time Total dose area product (DAP) in uGy*m?, mGy*cm? (or similar): 0.31024 IMPRESSION: 1. Fluoroscopy time.
[2023-07-22 11:38] VITALS: BP 130/84; PULSE 82; RESP 17
== END 2023-07-22 11:26 | disposition home or self-care (01) ==
LOC: ORPAIN 08:51
PROVIDERS: ATTEND Pain Medicine Interventional Pain Medicine
DX: M47.812 Spondylosis without myelopathy or radiculopathy, cervical region (principal); M50.31 Other cervical disc degeneration, high cervical region; F90.9 Attention-deficit hyperactivity disorder, unspecified type; F41.9 Anxiety disorder, unspecified; F32.A Depression, unspecified; F43.10 Post-traumatic stress disorder, unspecified; M79.7 Fibromyalgia; K21.9 Gastro-esophageal reflux disease without esophagitis; K58.9 Irritable bowel syndrome, unspecified; K29.70 Gastritis, unspecified, without bleeding; Z88.5 Allergy status to narcotic agent; Z88.8 Allergy status to other drugs, medicaments and biological substances; Z79.899 Other long term (current) drug therapy
CPT/HCPCS: 81025; 64490; 64491 ×2; J2250; J3010; J2795

== ENCOUNTER → 2023-08-10 | Outpatient (CLI) | payer OTHER ==
[2023-08-10 09:50] VITALS: BP 108/72; PULSE 76; RESP 16; TEMP 97.7
--- NOTE | 2023-08-10 14:53 | P.PAINPG ---
Objective - Vital Signs Vital signs: Vital Signs Temp 97.7 F 08/10/23 09:43 Pulse 76 08/10/23 09:43 Resp 16 08/10/23 09:43 BP 108/72 08/10/23 09:43 Pulse Ox 100 08/10/23 09:43 FiO2 Intake & Output 08/09/23 08/10/23 08/10/23 18:59 06:59 18:59 Weight 45.359 kg PQRS Measure Charge Sheet Mode of Arrival: Ambulatory Comment: HISTORY OF PRESENT ILLNESS: A 32 yr old female presents today w severe and chronic Head and Neck pain x 22 yrs secondary to occipital neuralgia/ cervicogenic PORTER for evaluation s/p BL MBB C2-C3, C3-C4 #2. Pt states she experienced 80 % pain relief x 2 hrs s/p procedure. Pt states pain level is provoked at 9 /10 in intensity, constant, localized in the upper neck, tight in character w shooting pain towards the scalp. Pain is provoked by stress, changes in weather or neck positions while lying on pillow. Pain is alleviated by PT x 6 wks which ended in May 2023, physician guided exercise regimen (Cervical) daily since Apr 2023, injections in the past, heat, topical, repositioning, hot showers and rest. Cervical disability score of 11. Interventional procedures include BL MBB C2-4 x2 Medications include Cannabis use REVIEW OF ORGAN SYSTEMS: CONSTITUTIONAL: No fevers or chills. No recent weight loss. NEUROLOGICAL: + numbness and tingling along the distal extremities. No seizure disorders or headaches. MUSCULOSKELETAL: + pain PSYCHIATRIC: Denies current depression or suicidal thoughts. Physical Examinations : Constitutional : Cooperative , not in acute distress . Neurologic : Cranial nerve II to XII intact. No focal neurological deficits. Psychiatric : alert & oriented x 3. Matching mood & appropriate affect. Judgment & insight intact. Musculoskeletal : Cervical Spine Motor strength in the deltoid and biceps: Normal right side. Normal Left side Motor strength biceps and the wrist extensors: Normal right side . Normal left side Motor strength in the triceps muscle: Normal right side. Normal left side Deep tendon reflexes: Normal at the biceps. Normal at Brachioradialis. Normal at triceps Vertebral body tenderness to deep palpation over Cervical facet loading test: positive bilaterally C2-C3, C3-C4 Spurling test: positive bilaterally Neck distraction test: positive bilaterally Eloisa sign: positive bilaterally Lumbar spine Motor strength lower extremities ,thigh and legs 5/5 Right side , 5/5 Left side Deep tendon reflexes : Normal Knee Jerk. Normal Ankle Jerk Vertebral body tenderness over Smith Test positive Lumbar facet Loading Test: positive Right / positive Left Range of motion of the lumbar spine Flexion 30 degrees, extension 10 degrees Straight Leg Raise test: Left/ Right positive at degree Darcy test: positive right / positive left. Severe tenderness over the Sacroiliac joint on the Right / Left sides Gaenslen test: positive bilaterally Seated flexion test: positive bilaterally. Sacral spine : Severe tenderness over the Sacroiliac joint: right side / left side Range of motion: Flexion of the lumbar spine <60 degrees Range of motion: Extension of the lumbar spine <20 degrees Gaenslen's Test positive Darcy test: positive right side / left side Thigh Thrust Test Sacral Thrust Test Assessment/ Plan : Occipital Neuralgia/ Cervicogenic PORTER Recommendation of BL RFA C2-C3, C3-C4. Exhibited optimal pain relief w prior BL MBB C2-C4 procedures. Risks, benefits of procedure discussed and patient verbalized understanding. Admits to anti- coagulant use or medical history of diabetes. Protocol for discontinuation/ continuation of medications qi procedure discussed. Minimal anesthesia provided, if clinically indicated, consisting of Versed and Fentanyl. All questions answered. I have spent greater than 30 minutes on patient care today. Dr Espinoza was available by phone for the evaluation of this patient. The time was used to review the medical records including relevant urine studies and Prescription history (MAPs), review of the available imaging, evaluation and examination of the patient, coordination of care with the medical staff and if applicable referring physicians, as well as creation of the medical record - Pain Location Bilateral Upper Neck Non-Pharmacological Interventions: Heat, Inactivity Pharmacological Interventions: Block, Epidural, PRN Medication, Topical Medication PQRS Narrative: Smoking Status Never smoker Blood Pressure 108/72 Pain Intensity [Bilateral 4 Upper Neck] Scale Used Numeric (1 - 10) Hx Alcohol Use (MH) No Home Medications: Ambulatory Orders Dextroamphetamine/Amphetamine [Adderall Xr] 20 mg PO BID PRN 10/20/18 Ubrogepant [Ubrelvy] 50 mg PO DIRECTED PRN 03/08/23 Controlled Substance Measures - Controlled Substance Measures Is patient prescribed a controlled substance at discharge?: No
== END ==
LOC: PNWHC3 09:29
PROVIDERS: ATTEND Specialist
DX: M54.81 Occipital neuralgia (principal); G44.86 Cervicogenic headache; M47.812 Spondylosis without myelopathy or radiculopathy, cervical region; Z88.5 Allergy status to narcotic agent
CPT/HCPCS: 99211

== ENCOUNTER 2023-09-02 06:12 | Day surgery (SDC) | payer OTHER ==
[2023-08-30 13:41] VITALS: BMI 18.3
[2023-09-02] MEDS: LACTATED RINGERS 1,000 ML IV SCH (06:40)
[2023-09-02 06:47] LABS: Glucose,Whole Blood 90 mg/dL (70-110)
[2023-09-02] MEDS ORDERED: MIDAZOLAM 2 MG/2 ML VIAL ONE (07:04)
[2023-09-02] MEDS ORDERED: fentaNYL (PF) 50 MCG/ML 2 ML AMP ONE (07:04)
[2023-09-02] MEDS ORDERED: ROPIVACAINE 5MG/ML 20ML VIAL ONE (07:12)
[2023-09-02] MEDS ORDERED: TRIAMCINOLONE ACETONIDE 40 MG/ML 1 ML VIAL ONE (07:12)
[2023-09-02 07:33] VITALS: TEMP 97.1
[2023-09-02] MEDS: IV FLUID CONTINUATION 400 ML IV ONE (07:49)
--- NOTE | 2023-09-02 07:49 | P.PCN ---
Date of Procedure: 09/02/23 Surgeon: Clyde Sibley Pathology: none sent Condition: stable Disposition: PACU Description of Procedure: The patient was seen in the preoperative holding area, the procedure was explained to the patient and her questions were answered. Then she was brought into the procedure room and placed in prone position. Skin was prepped with ChloraPrep and draped in a sterile manner. Lidocaine 1% was used to numb the skin up at the target points that were chosen as follows: For the C2 , C3 , and C4 medial branches the target points were the center of the trapezoid shaped cervical articular pillars of C2 , C3, C4 on the lateral view of fluoroscopy, and for the third occipital nerve the target point was at the middle of the C2- C3 joint line at the superior, meddle and inferior edges of this joint line. I used 100 mm in length 20-gauge with 10 mm curved active tip radiofrequency ablation needles for this procedure. Motor examination showed only local twitches of these needles with no radiation of twitching to the left upper extremity. After that I injected 0.5 MLS of Ropivacaine 0.5% with a total of 20 mg of Kenalog.. Radiofrequency ablation was then started for 90 seconds at 80C the needles were withdrawn intact. The patient tolerated procedure well. She was monitored in the PACU for 20 minutes and she was discharged home in stable condition. a copy of needle placement under fluoroscopy machine was saved. Anesthesia was provided by the anesthesia Department with IV sedation with 2 mg of Versed and 100 g of fentanyl.
--- NOTE | 2023-09-02 07:53 | FL ---
EXAMINATION TYPE: FL guided pain mgmt statistic DATE OF EXAM: 09/02/2023 HISTORY: Fluoroscopy time Total dose area product (DAP) in uGy*m?, mGy*cm? (or similar): 0.80252 IMPRESSION: 1. Fluoroscopy time.
[2023-09-02 08:21] VITALS: BP 119/78; PULSE 74; RESP 16
== END 2023-09-02 08:14 | disposition home or self-care (01) ==
LOC: ORPAIN 06:12
PROVIDERS: ATTEND Anesthesiology
DX: M47.812 Spondylosis without myelopathy or radiculopathy, cervical region (principal); Z88.2 Allergy status to sulfonamides; Z79.899 Other long term (current) drug therapy
CPT/HCPCS: 81025; 64633; 64634 ×2; J2250; J3301; J3010; J2795

== ENCOUNTER → 2023-10-10 | Outpatient (CLI) | payer OTHER ==
[2023-10-10 13:27] VITALS: BP 119/73; PULSE 83; RESP 16; TEMP 97.6
--- NOTE | 2023-10-10 15:03 | P.PAINPG ---
PQRS Measure Charge Sheet Comment: HISTORY OF PRESENT ILLNESS: A 32 yr old female presents today w severe and chronic Head and Neck pain x 22 yrs secondary to occipital neuralgia/ cervicogenic PORTER for evaluation s/p BL RFA C2-C4. Pt states she experienced 0 % pain relief s/p procedure. Pt states pain level is provoked at 4 /10 in intensity, constant, localized in the upper neck, burning in character w shooting pain towards the head. Pain is provoked by hyperextension. Pain is alleviated by PT x 6 wks which ended in May 2023, physician guided exercise regimen (Cervical) daily since Apr 2023, injections in the past, heat, topical, repositioning, hot showers and rest. Cervical disability score of 11. Interventional procedures include BL ROLANDO x1 (Mar 2023), BL RFA C2-4 (August 2023) Medications include Cannabis use REVIEW OF ORGAN SYSTEMS: CONSTITUTIONAL: No fevers or chills. No recent weight loss. NEUROLOGICAL: + numbness and tingling along the distal extremities. No seizure disorders or headaches. MUSCULOSKELETAL: + pain PSYCHIATRIC: Denies current depression or suicidal thoughts. Physical Examinations : Constitutional : Cooperative , not in acute distress . Neurologic : Cranial nerve II to XII intact. No focal neurological deficits. Psychiatric : alert & oriented x 3. Matching mood & appropriate affect. Judgment & insight intact. Musculoskeletal : Cervical Spine Motor strength in the deltoid and biceps: Normal right side. Normal Left side Motor strength biceps and the wrist extensors: Normal right side . Normal left side Motor strength in the triceps muscle: Normal right side. Normal left side Deep tendon reflexes: Normal at the biceps. Normal at Brachioradialis. Normal at triceps Vertebral body tenderness to deep palpation over Cervical facet loading test: positive bilaterally C2-C3, C3-C4 Spurling test: positive bilaterally Neck distraction test: positive bilaterally Eloisa sign: positive bilaterally Lumbar spine Motor strength lower extremities ,thigh and legs 5/5 Right side , 5/5 Left side Deep tendon reflexes : Normal Knee Jerk. Normal Ankle Jerk Vertebral body tenderness over Smith Test positive Lumbar facet Loading Test: positive Right / positive Left Range of motion of the lumbar spine Flexion 30 degrees, extension 10 degrees Straight Leg Raise test: Left/ Right positive at degree Darcy test: positive right / positive left. Severe tenderness over the Sacroiliac joint on the Right / Left sides Gaenslen test: positive bilaterally Seated flexion test: positive bilaterally. Sacral spine : Severe tenderness over the Sacroiliac joint: right side / left side Range of motion: Flexion of the lumbar spine <60 degrees Range of motion: Extension of the lumbar spine <20 degrees Gaenslen's Test positive Darcy test: positive right side / left side Thigh Thrust Test Sacral Thrust Test Assessment/ Plan : Occipital Neuralgia/ Cervicogenic PORTER Is disinterested in Neurontin at this time. Will manage w OTC Lidocaine/ Lidoderm and may RTC on an as needed basis. All questions answered. I have spent greater than 30 minutes on patient care today. Dr Espinoza was available by phone for the evaluation of this patient. The time was used to review the medical records including relevant urine studies and Prescription history (MAPs), review of the available imaging, evaluation and examination of the patient, coordination of care with the medical staff and if applicable referring physicians, as well as creation of the medical record PQRS Narrative: Smoking Status Never smoker Hx Alcohol Use (MH) No Home Medications: Ambulatory Orders Dextroamphetamine/Amphetamine [Adderall Xr] 20 mg PO BID PRN 10/20/18 Ubrogepant [Ubrelvy] 50 mg PO DIRECTED PRN 03/08/23 Controlled Substance Measures - Controlled Substance Measures Is patient prescribed a controlled substance at discharge?: No
== END ==
LOC: PNWHC3 13:04
PROVIDERS: ATTEND Specialist
DX: G44.86 Cervicogenic headache (principal); M54.81 Occipital neuralgia; Z88.5 Allergy status to narcotic agent
CPT/HCPCS: 99211